=== PATIENT | male | born 1970 | race Caucasian/White ===

== ENCOUNTER 2017-08-06 03:12 | Emergency (ER) | payer BC, OTHER ==
[~2017-08-06] VITALS: Ht 172.7 cm; Wt 91.5 kg
[~2017-08-06 03:12] MED LIST: CPR500 PO
[2017-08-06 03:18] VITALS: TEMP 36.5; Ht 172.7 cm; Wt 91.5 kg
[2017-08-06] MEDS ORDERED: KETOROLAC TROMETHAMINE 30 MG/ML VIAL IV STA (03:32)
[2017-08-06] MEDS ORDERED: OPTIRAY 320 IV PRN (03:45)
[2017-08-06] MEDS ORDERED: CLINDAMYCIN IV 900 MG in DEXTROSE 5% ADD-VANTAGE 100ML 100 ML IV ONE (03:45)
[2017-08-06 03:51] LABS: BASO % 0.3 %; BASO ABS # 0.03 K/uL (0-0.2); EOS % 0.7 %; EOS ABS # 0.07 K/uL (0-0.5); HEMATOCRIT 42.8 % (42-52); HEMOGLOBIN 15.3 g/dL (14.0-18.0); IG# 0.01 K/uL (0.00-0.02); LYMPH % 17.9 %; LYMPH ABS # 1.75 K/uL (1.2-3.4); MEAN CELL VOLUME 85.9 fL (80-100); MEAN CORPUSCULAR HEMOGLOBIN 30.7 pg (25-34); MEAN CORPUSCULAR HGB CONC 35.7 g/dl (32-36); MEAN PLATELET VOLUME 10.2 fL (7.4-10.4); MONO % 9.7 %; MONO ABS # 0.95 K/uL (0.11-0.59); NEUT % 71.3 %; NEUT ABS # 6.99 K/uL (1.4-6.5); PLATELET COUNT 237 K/uL (130-400); RED CELL DISTRIBUTION WIDTH CV 13.1 % (11.5-14.5); RED CELL DISTRIBUTION WIDTH SD 41.2 fL (36.4-46.3)
[2017-08-06] MEDS ORDERED: PRLSR20 PO (04:05)
[2017-08-06] MEDS ORDERED: DICY10CA12 PO (04:05)
[2017-08-06 04:08] LABS: CALCIUM 9.3 mg/dl (8.5-10.1); CREATININE 0.98 mg/dl (0.60-1.40); POTASSIUM 3.6 mmol/L (3.5-5.1)
--- NOTE | 2017-08-06 04:31 | EMERGENCY ROOM VISIT NOTE ---
History First contact with patient: 03:21 Chief Complaint: FACIAL PAIN/INJURY Stated Complaint: SWOLLEN FACE RIGHT SIDE, INFECTED ABCESS History of Present Illness The patient is a 47 year old male who presents to the Emergency Room with complaints of right-sided facial swelling. The patient reports that yesterday afternoon, he developed some pain and a broken tooth in his right lower molars. He states the pain persisted throughout the day and he noticed some swelling of the area beginning last evening. Swelling worsened throughout the night, and the patient states that he woke up in the middle of the night 1 hour prior to arrival, he woke up with significant swelling in the area. He rates his overall discomfort a 2/10. Pain is aching and worse with movement of the mouth. He does report having issues with his teeth in the past and has had multiple abscesses. He has not seen a dentist in quite some time. He denies fever, difficulty breathing or difficulty swallowing. Review of Systems A complete 10 point review of systems was reviewed with the patient with pertinent positives and negatives as per history of present illness. All else were negative. Past Medical/Surgical History Medical Problems: (1) No significant active problems Social History Smoking Status: Current Every Day Smoker Current/Historical Medications Scheduled Clindamycin Hcl (Cleocin), 300 MG PO QID Omeprazole (Prilosec), 20 MG PO DAILY Scheduled PRN Dicyclomine Hcl (Dicyclomine Hcl), 1 CAP PO TID PRN for abdominal cramping Hydrocodone/Acetaminophen 5MG/325MG (Jupiter 5MG/325MG), 1-2 TABLET PO Q4H PRN for Pain Physical Exam Vital Signs Date Time Temp Pulse Resp B/P (MAP) Pulse Ox O2 Delivery O2 Flow Rate FiO2 08/06/17 06:06 57 20 97 08/06/17 06:01 118/80 08/06/17 05:47 64 95 Room Air 08/06/17 05:31 119/77 08/06/17 05:17 58 18 97 08/06/17 05:02 135/85 08/06/17 04:42 61 96 08/06/17 04:31 120/83 08/06/17 04:12 60 20 97 Room Air 08/06/17 04:01 133/87 08/06/17 03:57 130/87 08/06/17 03:18 36.5 80 16 134/89 95 Room Air Physical Exam VITALS: Vitals are noted on the nurse's note and reviewed by myself. Vital signs stable. GENERAL: This is a 47-year-old male, in no acute distress, nondiaphoretic, well- developed well-nourished. SKIN: The skin was without rashes. EARS: External auditory canals clear, tympanic membranes pearly noland without erythema or effusion bilaterally. EYES: Pupils equal round and reactive to light and accommodation. NOSE: Patent, turbinates without inflammation or discharge. MOUTH: There are multiple dental caries. No obvious abscess within the mouth. FACE: There is notable swelling to the right lower mandibular area which is tender to palpation. No overlying erythema or induration. NECK: Supple without nuchal rigidity. No lymphadenopathy. HEART: Regular rate and rhythm without murmurs gallops or rubs. LUNGS: Clear to auscultation bilaterally without wheezes, rales or rhonchi. NEURO: Patient was alert and oriented to person place and time. Medical Decision & Procedures ER Provider Diagnostic Interpretation: CT FACIAL: Compared to 12/20/07. Right lower facial soft tissue swelling and induration with rim-enhancing fluid collection adjacent to the right mandible measuring approximately 15 x 4 x 15 mm. Findings are suggestive of odontogenic infection and abscess. Dental caries. Mild sinus disease. Radiologist: Farida Fonseca M.D. Laboratory Results 08/06/17 03:42 Red Blood Count 4.98, Mean Corpuscular Volume 85.9, Mean Corpuscular Hemoglobin 30.7, Mean Corpuscular Hemoglobin Concent 35.7, Mean Platelet Volume 10.2, Neutrophils (%) (Auto) 71.3, Lymphocytes (%) (Auto) 17.9, Monocytes (%) (Auto) 9.7, Eosinophils (%) (Auto) 0.7, Basophils (%) (Auto) 0.3, Neutrophils # (Auto) 6.99, Lymphocytes # (Auto) 1.75, Monocytes # (Auto) 0.95, Eosinophils # (Auto) 0.07, Basophils # (Auto) 0.03 08/06/17 03:42 Test 08/06/17 03:42 White Blood Count 9.80 K/uL (4.8-10.8) Red Blood Count 4.98 M/uL (4.7-6.1) Hemoglobin 15.3 g/dL (14.0-18.0) Hematocrit 42.8 % (42-52) Mean Corpuscular Volume 85.9 fL (80-100) Mean Corpuscular Hemoglobin 30.7 pg (25-34) Mean Corpuscular Hemoglobin Concent 35.7 g/dl (32-36) Platelet Count 237 K/uL (130-400) Mean Platelet Volume 10.2 fL (7.4-10.4) Neutrophils (%) (Auto) 71.3 % Lymphocytes (%) (Auto) 17.9 % Monocytes (%) (Auto) 9.7 % Eosinophils (%) (Auto) 0.7 % Basophils (%) (Auto) 0.3 % Neutrophils # (Auto) 6.99 K/uL (1.4-6.5) Lymphocytes # (Auto) 1.75 K/uL (1.2-3.4) Monocytes # (Auto) 0.95 K/uL (0.11-0.59) Eosinophils # (Auto) 0.07 K/uL (0-0.5) Basophils # (Auto) 0.03 K/uL (0-0.2) RDW Standard Deviation 41.2 fL (36.4-46.3) RDW Coefficient of Variation 13.1 % (11.5-14.5) Immature Granulocyte % (Auto) 0.1 % Immature Granulocyte # (Auto) 0.01 K/uL (0.00-0.02) Anion Gap 4.0 mmol/L (3-11) Est Creatinine Clear Calc Drug Dose 101.2 ml/min Estimated GFR () 105.2 Estimated GFR (Non- 90.8 BUN/Creatinine Ratio 8.5 (10-20) Calcium Level 9.3 mg/dl (8.5-10.1) Medications Administered Medications (Trade) Dose Ordered Sig/Kyle Route Start Time Stop Time Status Last Admin Dose Admin Clindamycin Phosphate 900 mg/ Dextrose 106 ml @ 100 mls/hr ONE ONCE IV 08/06/17 03:45 08/06/17 04:48 DC 08/06/17 03:53 100 MLS/HR Ketorolac Tromethamine (Toradol Inj) 30 mg NOW STAT IV 08/06/17 03:32 08/06/17 03:33 DC 08/06/17 03:48 30 MG Medical Decision Differential diagnosis includes dental abscess, dental infection, facial cellulitis, Bart's angina, among others. The patient is a 47-year-old male who presents today complaining of right-sided facial swelling and dental pain. Exam does reveal appreciable swelling to the right lower jaw. Labs revealed no leukocytosis or concerning electrolyte abnormalities. CT was performed and read by statrad and did show odontogenic infection with abscess formation. Patient was given a dose of IV clindamycin and Toradol here. He will be placed on clindamycin but will need close follow- up with maxillofacial surgery. The counseling case manager did speak with the patient and will contact maxillofacial surgery first thing in the morning to schedule this appointment. Patient was advised to return here for worsening swelling, difficult breathing, difficulty swallowing, fevers or other new/concerning symptoms. The patient's case was reviewed with Dr. Perez, ED attending physician, who agreed with my assessment and treatment plan. Based on the patient's presentation and work up, I feel the patient is stable for outpatient treatment. The patient was educated to return to the emergency department for any worsening of their current condition or new/concerning symptoms. He will follow up with his PCP. [place] Drug Monitoring Program Search Results: patient reviewed within database, no issues identified Medication Reconcilliation Current Medication List: was personally reviewed by me Blood Pressure Screening Patient's blood pressure: Normal blood pressure Impression Primary Impression: Dental abscess Departure Information Dispostion Home / Self-Care Condition GOOD Prescriptions Hydrocodone/Acetaminophen 5MG/325MG (Jupiter 5MG/325MG) Tab 1-2 TABLET PO Q4H Y for Pain, #15 TAB For Initial Treatment Prov: Lula Reynolds PA-C 08/06/17 Clindamycin Hcl (CLEOCIN) 300 Mg Cap 300 MG PO QID for 10 Days, #40 CAP Prov: Lula Reynolds PA-C 08/06/17 Referrals No Doctor, Assigned (PCP) Huber Olson D.D.S. Patient Instructions My [facility] Additional Instructions You have been treated in the Emergency Department for a Dental Infection. You have been prescribed Jupiter to be used for pain control. This is a narcotic medication. You cannot drive or consume alcohol while on this medicine. This medicine should only be used for pain that cannot be controlled with over-the- counter pain medicines. You were prescribed Clindamycin to be taken as prescribed. This is an antibiotic. All antibiotics have the potential to cause diarrhea. Stop this medication and contact a medical provider if you were to develop any significant adverse side effects including: wheezing, shortness of breath, passing out, vomiting, or a diffuse rash. Always take antibiotics as directed and COMPLETE the ENTIRE course regardless of the improvement of your symptoms. For pain control, you can use the following [id number] medicines (if >12 yo): - Regular strength (325mg/tab) Tylenol (acetaminophen) 2 tabs every 4-6 hours as needed. Do not exceed 12 tablets in a 24 hour period. Avoid taking more than 4 grams (4000 mg) of Tylenol per day. This includes any other sources of acetaminophen you may take on a regular basis. - Regular strength (200 mg/tab) Advil (ibuprofen) 1-2 tabs every 4-6 hours as needed. Do not exceed a dose of 3200 mg per day. Refrain from smoking cigarettes or using chewing tobacco until you have been evaluated by your dentist. Keeping beverages lukewarm and consuming soft foods can decrease your pain. Warm compresses over the affected area may offer some relief. Case management will contact Dr. Olson's office to schedule you a follow up appointment and will contact you regarding this. Be sure to keep this appointment. Return to the emergency department if you develop the following symptoms despite treatment course outlined above: fever, difficulty breathing, difficulty swallowing intractable pain, increased redness, swelling, or pus- like discharge.
[2017-08-06 06:01] VITALS: BP 118/80
[2017-08-06 06:06] VITALS: PULSE 57; O2SAT 97
[2017-08-06] MEDS ORDERED: CLIN300C2 PO (06:14)
[2017-08-06] MEDS ORDERED: HYDR-5688 PO (06:16)
--- NOTE | 2017-08-06 07:11 | DIAGNOSTIC IMAGING REPORT ---
MAXILLOFACIAL CT CT DOSE: 146.91 mGy.cm HISTORY: right lower jaw swelling, dental infxn TECHNIQUE: Multiaxial CT images of the maxillofacial region were performed and reformatted in the coronal plane following the use of intravenous contrast. A dose lowering technique was utilized adhering to the principles of ALARA. COMPARISON: Maxillary facial CT 12/20/2007. FINDINGS: Right mandibular soft tissue swelling. There is no associated rim-enhancing fluid collection adjacent to the right hemimandible best seen on image 55. This measures 16 x 4 mm and is consistent with an abscess. Mild mucosal thickening within the ethmoid air cells. Multiple dental caries and periapical lucencies seen scattered throughout the teeth. This includes 2 adjacent periapical lucencies at ADA 28 and 29 adjacent to the abscess. IMPRESSION: A 16 x 4 mm abscess abutting the buccal surface of the right hemimandible with associated right mandibular soft tissue swelling. Findings are secondary to an odontogenic infection. Electronically signed by: Wale Lacy M.D. 08/06/2017 7:09 AM Dictated Date/Time: 08/06/2017 7:06 AM
== END 2017-08-06 06:28 | disposition home or self-care (01) ==
LOC: C.EDB 03:14
DX: K04.7 Periapical abscess without sinus (principal); K02.9 Dental caries, unspecified; F17.200 Nicotine dependence, unspecified, uncomplicated

== ENCOUNTER 2017-11-16 12:41 | Inpatient (IN) | payer BC ==
[~2017-11-16] VITALS: Ht 172.7 cm; Wt 89.5 kg
[~2017-11-16 12:41] MED LIST changes: -CPR500 PO; +DICY10CA12 PO; +HYDR-5688 PO; +PRLSR20 PO
[2017-11-16] MEDS ORDERED: SODIUM CHLORIDE 0.9% 1000ML 1,000 ML IV STA ×2 (13:00)
[2017-11-16 13:24] LABS: BASO % 0.4 %; BASO ABS # 0.04 K/uL (0-0.2); EOS % 0.2 %; EOS ABS # 0.02 K/uL (0-0.5); HEMATOCRIT 33.5 % (42-52); HEMOGLOBIN 11.2 g/dL (14.0-18.0); IG# 0.03 K/uL (0.00-0.02); LYMPH % 20.1 %; LYMPH ABS # 2.07 K/uL (1.2-3.4); MEAN CORPUSCULAR HEMOGLOBIN 29.1 pg (25-34); MEAN CORPUSCULAR HGB CONC 33.4 g/dl (32-36); MEAN PLATELET VOLUME 9.9 fL (7.4-10.4); MONO % 4.9 %; MONO ABS # 0.51 K/uL (0.11-0.59); NEUT % 74.1 %; NEUT ABS # 7.65 K/uL (1.4-6.5); PLATELET COUNT 244 K/uL (130-400); RED CELL DISTRIBUTION WIDTH SD 41.5 fL (36.4-46.3); WHITE BLOOD COUNT 10.32 K/uL (4.8-10.8)
[2017-11-16] MEDS ORDERED: PANTOprazole INJ 80 MG in DEXTROSE 5% 100ML IV ONE (13:30)
[2017-11-16 13:51] LABS: ALBUMIN 3.2 gm/dl (3.4-5.0); CALCIUM 7.9 mg/dl (8.5-10.1); CREATININE 0.97 mg/dl (0.60-1.40); TOTAL PROTEIN 6.2 gm/dl (6.4-8.2)
--- NOTE | 2017-11-16 14:04 | EMERGENCY ROOM VISIT NOTE ---
History Report prepared by Allen: Eliana Mcgregor Under the Supervision of: Dr. Amy Sarkar M.D. First contact with patient: 12:44 Chief Complaint: RECTAL BLEEDING Stated Complaint: DIZZINESS/TIRED Nursing Triage Summary: pt here with feeling of weakness and tired for a few days. pt was seen at [facility] on friday, started on omeprazole. pt states yesterday stools were dark. today had 2 bowel movements that were black and tarry. no hx of gi bleeding. having occasional abd pains. History of Present Illness The patient is a 47 year old male who presents to the Emergency Room with complaints of intermittent rectal bleeding that began two days ago. The patient stated that he had an H. pylori ulcer, which was treated using antibiotics during the first week of September. He noted that he had red beans and rice on night and then vomited night into Friday morning once every hour. He stated that he mostly heaved and produced non-bloody, bile colored vomit that had black specks in it. He notes that he would clear his throat and produce a pink sputum after vomiting. The patient noted that he has had melena twice a day for the past two days. He stated that he had abdominal pain, which he described as squeezing in his lower abdomen and tightness in his chest. The patient stated that this pain was similar, but not identical to the pain he experienced prior to his cholecystectomy. The patient complains of nausea, diaphoresis, and worsening lightheadedness over the past 2 days. He noted that he started taking Acetaminophen and Naproxen Sodium a week ago for toothache pain. He notes he takes 1 Naproxen Sodium in the evening. The patient notes that he began taking Omeprazole on Friday. The patient denies hematemesis, current abdominal pain, and the use of blood thinners. Source of History: patient Onset: Two days ago Position: other (Rectum) Timing: intermittent Associated Symptoms: + diaphoresis, + nausea, No abdominal pain Note: The patient complains of lightheadedness. The patient denies hematemesis. Review of Systems See HPI for pertinent positives & negatives. A total of 10 systems reviewed and were otherwise negative. Past Medical & Surgical Medical Problems: (1) GI bleed (2) No significant active problems (3) Tachycardia (4) Ulcer of pylorus associated with Helicobacter pylori Surgical Problems: (1) S/P cholecystectomy (2) S/P hernia repair Family History Diabetes mellitus FH: cancer FATHER MOTHER FHx: seizures Gallbladder disease Lung disease Social History Smoking Status: Light Tobacco Smoker Alcohol Use: other (1 to 2 6 packs per week ) Marital Status: Housing Status: lives with family Occupation Status: employed Current/Historical Medications Scheduled Omeprazole (Prilosec), 20 MG PO DAILY Allergies Coded Allergies: Penicillins (Verified Allergy, Unknown, RASH,ITCHING,SWELLING, 11/16/17) Physical Exam Vital Signs Date Time Temp Pulse Resp B/P (MAP) Pulse Ox O2 Delivery O2 Flow Rate FiO2 11/16/17 14:35 105 18 105/74 98 Room Air 11/16/17 14:07 97 Room Air 11/16/17 13:50 115 20 105/75 97 Room Air 11/16/17 13:47 83 18 104/77 97 Room Air 11/16/17 12:51 36.9 106 16 135/90 99 Room Air 11/16/17 12:48 97 Physical Exam Vital signs reviewed. Noted to be tachycardic. General: Well-appearing, in no significant distress. HEENT: No scleral icterus, PERRLA, neck supple. Atraumatic. Pale conjunctiva. Cardiovascular: Tachycardic rate and regular rhythm, no extra sounds. Pulmonary: Clear to auscultation bilaterally, normal work of breathing. Abdomen: Soft, mild epigastric tenderness, nondistended, positive bowel sounds. No rebound or guarding. Rectal: Melanotic stool that was guaiac positive. Normal external mucosa. Musculoskeletal: Atraumatic, no peripheral edema. Neurologic: Patient awake alert and oriented x 3, full strength in all 4 extremities. Cranial nerves 2 through 12 grossly intact. Skin: Warm, dry, no rash Medical Decision & Procedures Laboratory Results 11/16/17 13:13 Red Blood Count 3.85, Mean Corpuscular Volume 87.0, Mean Corpuscular Hemoglobin 29.1, Mean Corpuscular Hemoglobin Concent 33.4, Mean Platelet Volume 9.9, Neutrophils (%) (Auto) 74.1, Lymphocytes (%) (Auto) 20.1, Monocytes (%) (Auto) 4.9, Eosinophils (%) (Auto) 0.2, Basophils (%) (Auto) 0.4, Neutrophils # (Auto) 7.65, Lymphocytes # (Auto) 2.07, Monocytes # (Auto) 0.51, Eosinophils # (Auto) 0.02, Basophils # (Auto) 0.04 11/16/17 13:13 Test 11/16/17 13:13 White Blood Count 10.32 K/uL (4.8-10.8) Red Blood Count 3.85 M/uL (4.7-6.1) Hemoglobin 11.2 g/dL (14.0-18.0) Hematocrit 33.5 % (42-52) Mean Corpuscular Volume 87.0 fL (80-100) Mean Corpuscular Hemoglobin 29.1 pg (25-34) Mean Corpuscular Hemoglobin Concent 33.4 g/dl (32-36) Platelet Count 244 K/uL (130-400) Mean Platelet Volume 9.9 fL (7.4-10.4) Neutrophils (%) (Auto) 74.1 % Lymphocytes (%) (Auto) 20.1 % Monocytes (%) (Auto) 4.9 % Eosinophils (%) (Auto) 0.2 % Basophils (%) (Auto) 0.4 % Neutrophils # (Auto) 7.65 K/uL (1.4-6.5) Lymphocytes # (Auto) 2.07 K/uL (1.2-3.4) Monocytes # (Auto) 0.51 K/uL (0.11-0.59) Eosinophils # (Auto) 0.02 K/uL (0-0.5) Basophils # (Auto) 0.04 K/uL (0-0.2) RDW Standard Deviation 41.5 fL (36.4-46.3) RDW Coefficient of Variation 13.0 % (11.5-14.5) Immature Granulocyte % (Auto) 0.3 % Immature Granulocyte # (Auto) 0.03 K/uL (0.00-0.02) Anion Gap 6.0 mmol/L (3-11) Est Creatinine Clear Calc Drug Dose 101.5 ml/min Estimated GFR () 106.6 Estimated GFR (Non- 91.9 BUN/Creatinine Ratio 50.3 (10-20) Calcium Level 7.9 mg/dl (8.5-10.1) Total Bilirubin 0.5 mg/dl (0.2-1) Direct Bilirubin 0.1 mg/dl (0-0.2) Aspartate Amino Transf (AST/SGOT) 5 U/L (15-37) Alanine Aminotransferase (ALT/SGPT) 15 U/L (12-78) Alkaline Phosphatase 64 U/L (45-117) Total Protein 6.2 gm/dl (6.4-8.2) Albumin 3.2 gm/dl (3.4-5.0) Laboratory results per my review. Medications Administered Medications (Trade) Dose Ordered Sig/Kyle Route Start Time Stop Time Status Last Admin Dose Admin Sodium Chloride 1,000 ml @ 999 mls/hr Q1H1M STAT IV 11/16/17 13:00 11/16/17 14:00 DC 11/16/17 13:10 999 MLS/HR Sodium Chloride 1,000 ml @ 150 mls/hr Q6H40M STAT IV 11/16/17 13:00 11/16/17 19:39 11/16/17 13:10 150 MLS/HR Pantoprazole Sodium 80 mg/ Dextrose 120 ml @ 480 mls/hr 1330 ONCE IV 11/16/17 13:30 11/16/17 13:44 DC 11/16/17 13:44 480 MLS/HR Pantoprazole Sodium 40 mg/ Dextrose 100 ml @ 20 mls/hr Q5H IV 11/16/17 13:45 11/16/17 23:59 11/16/17 14:05 20 MLS/HR ECG Per My Interpretation Indication: abdominal pain Rate (beats per minute): 90 Rhythm: normal sinus Findings: no acute ischemic change, no ectopy, other (Nonspecific T wave abnormalities ) ED Course 1259: Past medical records reviewed. The patient was evaluated in room B2. A complete history and physical examination was performed. 1403: I reevaluated the patient and updated him on his test results. He verbally agrees and understands the treatment plan. 1408: I reviewed the patient's case with Dr. Marleen Newton. He will evaluate the patient for further management. Medical Decision Differential diagnosis: Etiologies such as diverticulosis, AVM, coagulopathy, colitis, inflammatory bowel disease, malignancy, Zandra-Vogt tear, esophagitis, peptic ulcer disease , variceal bleed, gastritis, epistaxis, fissure, hemorrhoids, as well as others were entertained. This patient was evaluated and appeared to be in no significant distress. IV access was obtained and laboratory work was drawn. Patient is noted to be tachycardic but maintaining normal blood pressure. He was hydrated with normal saline solution with improvement in his heart rate. Patient was given a Protonix bolus and started on a drip. He was typed and crossed for 2 units to hold. Patient's hemoglobin is 11, although he is likely hemoconcentrated. Patient was informed of the findings. The case was discussed with the hospitalist service. The patient was made aware of the plan and agrees. Medication Reconcilliation Current Medication List: was personally reviewed by me Blood Pressure Screening Patient's blood pressure: Normal blood pressure Blood pressure disposition: Did not require urgent referral Consults Time Called: [phone] Consulting Physician: Dr. Marleen Newton Returned Call: [phone] I reviewed the patient's case with Dr. Marleen Newton. He will evaluate the patient for further management. Impression Primary Impression: Upper GI bleed Scribe Attestation The scribe's documentation has been prepared under my direction and personally reviewed by me in its entirety. I confirm that the note above accurately reflects all work, treatment, procedures, and medical decision making performed by me. Departure Information Dispostion Being Evaluated By Hospitalist Referrals Xuan Loyd M.D. (MEDICAL) (PCP) Patient Instructions My [facility]
[2017-11-16] MEDS: PANTOprazole INJ 40 MG in DEXTROSE 5% 100ML IV SCH ×3 (14:05→23:45)
[2017-11-16 14:07] VITALS: O2SAT 97; Ht 172.7 cm; Wt 89.5 kg
[2017-11-16 14:35] VITALS: O2SAT 98
--- NOTE | 2017-11-16 14:37 | History and Physical ---
History & Physical Date & Time of Service: Nov 16, 2017 at 14:37 Chief Complaint: Dizziness/Tired Primary Care Physician: Xuan Loyd M.D. (MEDICAL) History of Present Illness Source: patient 47 year old male who presents to the Emergency Room with Recent vomiting started 4 days ago Melena in stool today Also abdominal pain recently going across the belly Recently used Naproxen for tooth pain for 7 days but not recently in the last 2 days because of feeling malaise Patient less than baseline hemoglobin in the emergency room. Blood pressure stable. However tachycardic to 130 with minimal exertion when examined by hospitalist. Patient's heart rate returned to around 100 beats per minute when at rest Patient reported less nausea. Denied vomiting today. Reports abdominal pain feeling somewhat better. Denies chest pain or shortness of breath or blood in urine Past Medical/Surgical History Medical Problems: (1) Dental abscess (2) No significant active problems Family History FH: cancer FATHER MOTHER Social History Smoking Status: Light Tobacco Smoker Allergies Coded Allergies: Penicillins (Verified Allergy, Unknown, RASH,ITCHING,SWELLING, 11/16/17) Home Medications Scheduled Omeprazole (Prilosec), 20 MG PO DAILY Review of Systems Constitutional: No fever Eyes: No worsening of vision ENT: No hearing loss Respiratory: No cough, No wheezing, No shortness of breath, No hemoptysis Cardiovascular: No chest pain, No edema, No palpitations Abdomen: + pain, + vomiting, + GI bleeding (black tarry stool today), No nausea , No diarrhea Musculoskeletal: No joint pain, No muscle pain Genitourinary - Male: No hematuria Neurologic: + problem reported (lightheadedness), No numbness/tingling Psychiatric: No substance abuse Endocrine: No excessive urination Hematologic / Lymphatic: No clotting problems Integumentary: No rash, No itch Physical Exam Vital Signs Date Time Temp Pulse Resp B/P (MAP) Pulse Ox O2 Delivery O2 Flow Rate FiO2 11/16/17 13:47 83 18 104/77 97 Room Air 11/16/17 12:51 36.9 106 16 135/90 99 Room Air 11/16/17 12:48 97 General Appearance: no apparent distress Head: normocephalic, atraumatic Eyes: normal inspection, EOMI, sclerae normal ENT: normal ENT inspection, hearing grossly normal, pharynx normal Neck: supple, no JVD, trachea midline Respiratory/Chest: chest non-tender, lungs clear, normal breath sounds, no respiratory distress, no accessory muscle use Cardiovascular: no edema, no JVD, no murmur, normal peripheral pulses, + tachycardia Abdomen/GI: normal bowel sounds, non tender, soft, no organomegaly, no pulsatile mass Back: normal inspection, normal range of motion Extremities/Musculoskelatal: normal inspection, no calf tenderness, no pedal edema Neurologic/Psych: no motor/sensory deficits, alert, oriented x 3 Skin: normal color, warm/dry, no rash Diagnostics Laboratory Results Results Past 24 Hours Test 11/16/17 13:13 Range/Units White Blood Count 10.32 4.8-10.8 K/uL Red Blood Count 3.85 4.7-6.1 M/uL Hemoglobin 11.2 14.0-18.0 g/dL Hematocrit 33.5 42-52 % Mean Corpuscular Volume 87.0 80-100 fL Mean Corpuscular Hemoglobin 29.1 25-34 pg Mean Corpuscular Hemoglobin Concent 33.4 32-36 g/dl Platelet Count 244 130-400 K/uL Mean Platelet Volume 9.9 7.4-10.4 fL Neutrophils (%) (Auto) 74.1 % Lymphocytes (%) (Auto) 20.1 % Monocytes (%) (Auto) 4.9 % Eosinophils (%) (Auto) 0.2 % Basophils (%) (Auto) 0.4 % Neutrophils # (Auto) 7.65 1.4-6.5 K/uL Lymphocytes # (Auto) 2.07 1.2-3.4 K/uL Monocytes # (Auto) 0.51 0.11-0.59 K/uL Eosinophils # (Auto) 0.02 0-0.5 K/uL Basophils # (Auto) 0.04 0-0.2 K/uL RDW Standard Deviation 41.5 36.4-46.3 fL RDW Coefficient of Variation 13.0 11.5-14.5 % Immature Granulocyte % (Auto) 0.3 % Immature Granulocyte # (Auto) 0.03 0.00-0.02 K/uL Sodium Level 138 136-145 mmol/L Potassium Level 4.0 3.5-5.1 mmol/L Chloride Level 108 98-107 mmol/L Carbon Dioxide Level 24 21-32 mmol/L Anion Gap 6.0 3-11 mmol/L Blood Urea Nitrogen 49 7-18 mg/dl Creatinine 0.97 0.60-1.40 mg/dl Est Creatinine Clear Calc Drug Dose 101.5 ml/min Estimated GFR () 106.6 Estimated GFR (Non- 91.9 BUN/Creatinine Ratio 50.3 10-20 Random Glucose 137 70-99 mg/dl Calcium Level 7.9 8.5-10.1 mg/dl Total Bilirubin 0.5 0.2-1 mg/dl Direct Bilirubin 0.1 0-0.2 mg/dl Aspartate Amino Transf (AST/SGOT) 5 15-37 U/L Alanine Aminotransferase (ALT/SGPT) 15 12-78 U/L Alkaline Phosphatase 64 45-117 U/L Total Protein 6.2 6.4-8.2 gm/dl Albumin 3.2 3.4-5.0 gm/dl Impression Assessment and Plan Symptomatic anemia Rule out GI bleed History of H Pylori History of NSAID use History of Melena in stool -admission Hgb of 11.2 compared to July 2017 Hgb of 15 and outpatient August 2017 of 14.7 (patient did have laparoscopic cholecystomy in September 2017) -IV fluids, trend CBC, Pantoprazole IV -trend CBC, 2 units of PRBC on hold as ordered by ED physician -Keep NPO -Case discuss with [facility] Case on evaluation for upper endoscopy/colonoscopy Tachycardia with sitting up (heart in the 130s when sitting up from rest in the emergency room) -may be from dehydration vs blood loss -treat for possible GI bleed and give IV fluids, transfuse if significant drop in Hgb or signs of exsanguination -monitor on telemetry History of alcohol use drinks 12 beers a week denies history of alcohol withdrawal no clinical signs of alcohol withdrawal at this time but will take precaution given already patient has tachycardia will start alcohol withdrawal order set with thiamine and folate, ativan IV prn History of Cholecystectomy DVT ppx: SCDs Full Code [phone] father [phone] Resuscitation Status VTE Prophylaxis Will order VTE Prophylaxis: Yes Reason for no VTE drug order: Contraindicated (GI BLEED)
[2017-11-16] MEDS ORDERED: LORAZEPAM 2 MG/ML 1 ML VIAL IV PRN (15:00)
[2017-11-16 15:50] VITALS: BP 116/77; PULSE 86; TEMP 37.2; O2SAT 98
[2017-11-16] MEDS: SODIUM CHLORIDE 0.9% 1000ML 1,000 ML IV SCH ×2 (16:13→22:59)
[2017-11-16] MEDS ORDERED: MULTI-VITAMIN INFUSION INJ 10 ML, THIAMINE HCL INJ 100 MG, FoLIC ACID INJ 1 MG in SODIU... IV ONE (16:30)
[2017-11-16] MEDS ORDERED: ONDANSETRON INJ 2 MG/ML 2 ML VIAL IV PRN (17:15)
[2017-11-16 19:59] LABS: HEMATOCRIT 26.1 % (42-52); HEMOGLOBIN 8.8 g/dL (14.0-18.0); MEAN CORPUSCULAR HEMOGLOBIN 29.3 pg (25-34); MEAN CORPUSCULAR HGB CONC 33.7 g/dl (32-36); MEAN PLATELET VOLUME 9.9 fL (7.4-10.4); PLATELET COUNT 214 K/uL (130-400); RED CELL DISTRIBUTION WIDTH CV 13.1 % (11.5-14.5); RED CELL DISTRIBUTION WIDTH SD 42.1 fL (36.4-46.3)
[2017-11-16 20:00] VITALS: BP 108/69; PULSE 75; TEMP 36.7; O2SAT 99
--- NOTE | 2017-11-16 21:01 | GASTROINTESTINAL CONSULTATION ---
DATE OF CONSULTATION: 11/16/2017 Cross coverage for [facility]. ATTENDING PHYSICIAN: Dr. Young. CONSULTING PHYSICIAN: Dr. Rios. REASON FOR CONSULTATION: GI bleed. HISTORY OF PRESENT ILLNESS: Huber Wilson is a 47-year-old male who has a significant past medical history of H. pylori induced gastric ulcer that was diagnosed by Dr. Georges in August of this year. He was subsequently treated with triple therapy including PPI and antibiotics x2 for 14 days and subsequently stopped PPI therapy following this as his symptoms had resolved. He did not have any further testing including repeat endoscopy or H. pylori stool antigen to confirm eradication per the patient and I do not have further records. He did undergo a cholecystectomy in early September and states that up until approximately 1-2 weeks ago, he was feeling good from a GI standpoint; however, he developed persistent abdominal pain in the midepigastric region. He states that he has been taking NSAIDs over the past 7 days for some tooth pain and states that the pain was approximately 7/10 in intensity, epigastric, radiating to his back without alleviating or exacerbating factors. He was seen at an outpatient [facility] yesterday and was started on Prilosec therapy. However, he developed prompting ER visit this morning and upon arrival to the Department of Emergency Medicine, he was noted to be anemic with an H and H of 11.2 and 33.5. His BUN and creatinine at the time of evaluation in the ER were 49 and 0.97. He was subsequently started on a Protonix drip with an 80 mg bolus followed by 8 mg per hour drip. He was noted to be tachycardic at times per Dr. Young who contacted me in this regard though the patient had no further episodes of melena that were witnessed in the hospital. At the time that I saw the patient, he did state that his abdominal pain had decreased to approximately 4/10 in intensity in the epigastric region. He denied any further melena. He further denied any hematemesis or hematochezia. He denies any further complaints. PAST MEDICAL HISTORY: Significant for peptic ulcer disease with a history of H. pylori, dental abscess, chronic cholecystitis. PAST SURGICAL HISTORY: Includes a cholecystectomy. ALLERGIES: PENICILLIN. MEDICATIONS: At present include Protonix 8 mg per hour drip, Zofran 4 mg IV q. 6 p.r.n. nausea, thiamine 100 mg IV q.a.m., Zofran 4 mg IV q. 6 p.r.n. nausea, Ativan 1 mg IV q. 1 hour p.r.n. symptoms of alcohol withdrawal. SOCIAL HISTORY: He is . 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 He states that he drinks approximately a 6 pack every 1-2 weeks of beer. He denies any illicit drug use. He does admit to vaping, but does not smoke cigarettes at present. FAMILY HISTORY: Negative for GI malignancy or inflammatory bowel diseases. REVIEW OF SYSTEMS: Negative x12 system review other than pertinent positives listed in the HPI. PHYSICAL EXAMINATION: VITAL SIGNS: Include a temperature of 37.2, pulse 86, respirations 18, blood pressure 116/77, pulse ox 98% on room air. GENERAL: He is awake, cooperative, in no acute distress. HEAD: Normocephalic, atraumatic. EYES: Pupils equally round. Extraocular muscles are intact. ENT: External evaluation of ears and nose are normal. Oropharynx is clear. NECK: Soft and supple. There is no JVD or lymphadenopathy. CHEST: Clear to auscultation bilaterally. CARDIOVASCULAR SYSTEM: Regular rate and rhythm. ABDOMEN: Soft, tender in the midepigastric area. Nondistended. There are positive bowel sounds. There is no hepatosplenomegaly or stigmata of chronic liver disease. EXTREMITIES: No clubbing, cyanosis, or edema. SKIN: Soft and pink. PSYCHIATRIC: Alert and oriented x3. LABORATORY STUDIES: Reviewed in the HPI. IMPRESSION: A 47-year-old male with history of peptic ulcer disease, history of H. pylori infection who presented with epigastric abdominal pain and melena with acute blood loss anemia. PLAN: At the present time, I would recommend that the patient be given clear liquids today. He will be kept n.p.o. after midnight. I would recommend he continue on a Protonix drip at 8 mg per hour and I would recommend that he undergo an upper endoscopy tomorrow by [facility] for further evaluation of his symptoms, especially in light of the fact that he has had a gastric ulcer previously and he has been on NSAIDs. I will follow his clinical course and make further recommendations as needed. Once again, thanks for allowing me to participate in the care of this patient. If you have any further questions, please do not hesitate in contacting me.
[2017-11-16 23:38] VITALS: BP 104/62; PULSE 77; TEMP 36.7; O2SAT 94
[2017-11-17] VITALS (16 sets, daily range): BP systolic 92–118; BP diastolic 61–83; PULSE 66–88; TEMP 36.5–37.3; O2SAT 97–100
[2017-11-17] MEDS: PANTOprazole INJ 40 MG in DEXTROSE 5% 100ML IV SCH ×5 (00:05→23:52)
[2017-11-17 02:57] LABS: HEMATOCRIT 22.9 % (42-52); HEMOGLOBIN 7.8 g/dL (14.0-18.0); MEAN CELL VOLUME 86.4 fL (80-100); MEAN CORPUSCULAR HEMOGLOBIN 29.4 pg (25-34); MEAN CORPUSCULAR HGB CONC 34.1 g/dl (32-36); MEAN PLATELET VOLUME 9.3 fL (7.4-10.4); PLATELET COUNT 188 K/uL (130-400); RED CELL DISTRIBUTION WIDTH CV 13.2 % (11.5-14.5); RED CELL DISTRIBUTION WIDTH SD 41.6 fL (36.4-46.3); WHITE BLOOD COUNT 8.68 K/uL (4.8-10.8)
[2017-11-17 03:37] LABS: ALBUMIN 2.6 gm/dl (3.4-5.0); CALCIUM 6.9 mg/dl (8.5-10.1); CREATININE 0.76 mg/dl (0.60-1.40); POTASSIUM 3.7 mmol/L (3.5-5.1); TOTAL PROTEIN 4.9 gm/dl (6.4-8.2)
[2017-11-17] MEDS ORDERED: ACETAMINOPHEN 325 MG TAB PO ONE (04:00)
[2017-11-17] MEDS ORDERED: FUROSEMIDE INJ 20 MG in SYRINGE 0 ML IV SCH (05:00)
[2017-11-17] MEDS: SODIUM CHLORIDE 0.9% 1000ML 1,000 ML IV SCH ×2 (06:12→16:08)
--- NOTE | 2017-11-17 08:24 | Progress Note ---
Progress Note Date of Service Nov 17, 2017. Progress Note Subjective: Patient currently on second unit of PRBC as his Hgb declined from admission 11.2 to 8.8 to 7.8. Patient also reported further dark tarry stools. Denies acute pain or shortness of breath or light headedness. On exam heart rate was 75 beats per minute with low normotensive blood pressure of systolic 106 while on blood products and IV fluids. When sitting up, for lung auscultation heart rate increased to 95 beats per minute before declining when returning to lying down on the bed Physical Exam General: no acute distress Lungs: clear to auscultation, no wheezing Heart: as above Abdomen: soft, nontender, bowel sounds present Extremities: no edema Neuro: awake and alert, moves extremities, verbal Assessment and Plan Symptomatic anemia History of H Pylori History of NSAID use History of Melena in stool Likely upper GI bleed -admission Hgb of 11.2 compared to July 2017 Hgb of 15 and outpatient August 2017 of 14.7 (patient did have laparoscopic cholecystomy in September 2017) -Patient currently on second unit of PRBC as his Hgb declined from admission 11.2 to 8.8 to 7.8. Patient also reported further dark tarry stools. -continue IV fluids, Pantoprazole IV -trend CBC -appreciate gastroenterology service intervention Tachycardia with sitting up (heart in the 130s when sitting up from rest in the emergency room) -on telemetry -heart rate increases from 75 bpm to 95 bpm with minimal exertion by day 2 -likely due to blood loss anemia -continue to treat GI bleed History of alcohol use drinks 12 beers a week denies history of alcohol withdrawal no clinical signs of alcohol withdrawal at this time precaution taken given already patient has tachycardia have been on alcohol withdrawal order set with thiamine and folate, ativan IV prn History of Cholecystectomy DVT ppx: SCDs Full Code [phone] father [phone]
[2017-11-17] MEDS: FoLIC ACID INJ 1 MG in SYRINGE 9.8 ML IV SCH (09:55)
[2017-11-17] MEDS: THIAMINE HCL INJ 100 MG in SYRINGE 9 ML IV SCH (09:56)
--- NOTE | 2017-11-17 10:11 | Clinical Documentation Query ---
BRITTON Barahona : CLINICAL DOCUMENTATION QUERY Patient is a 47 year old male admitted for symptomatic anemia in the setting of likely GI bleed. Hemoglobin down to 7.8 g/dl and was transfused two units of PRBC's. Monitored with serial hematology and seen in consultation by GI. Maintained on IVF and PPI infusion. In your clinical opinion is this patient being managed for: (x ) Acute blood loss anemia ( ) Not Agree ( ) Other explanation of clinical findings (No explanation is considered a No Response) ( ) Unable to determine ( ) Need to Discuss (Phone CDS or qliq) (No discussion is considered a No Response) The medical record reflects the following clinical findings, treatment, and risk factors. Clinical Indicators: As above Treatment: As above Risk Factors: H.Pylori, alcohol use, NSAID use Please clarify and document your clinical opinion in the progress notes and discharge summary. Terms such as "probable", "suspected", "likely", "questionable", "possible", or "still to be ruled out" are acceptable. IF IN AGREEMENT, YOU MUST DOCUMENT ABOVE DIAGNOSTIC STATEMENT IN DAILY PROGRESS NOTES AND DISCHARGE SUMMARY. This document is not part of the patient's record. Thank You, Eldon Llanos, RN [phone]
[2017-11-17 10:47] LABS: HEMATOCRIT 28.3 % (42-52); HEMOGLOBIN 9.6 g/dL (14.0-18.0); MEAN CELL VOLUME 85.8 fL (80-100); MEAN CORPUSCULAR HEMOGLOBIN 29.1 pg (25-34); MEAN CORPUSCULAR HGB CONC 33.9 g/dl (32-36); PLATELET COUNT 176 K/uL (130-400); RED CELL DISTRIBUTION WIDTH CV 13.7 % (11.5-14.5); RED CELL DISTRIBUTION WIDTH SD 42.4 fL (36.4-46.3); WHITE BLOOD COUNT 7.53 K/uL (4.8-10.8)
[2017-11-17] MEDS ORDERED: LIDOCAINE HCL 2% 2 ML VIAL (20MG/ML) ONE (11:07)
[2017-11-17] MEDS ORDERED: PROPOFOL IV EMULSION 10 MG/ML 20 ML VIAL ONE (11:07)
--- NOTE | 2017-11-17 11:10 | Endo History and Physical ---
History & Physical Date of Service: Nov 17, 2017. Chief Complaint: Referring Physician: History of Present Illness pt with GI bleeding and hx of ulcer disease. Past Surgical History Hx Cardiac Surgery: No Hx Abdominal Surgery: Yes ([facility]) Hx Post-Op Nausea and Vomiting: No Hx Cancer Surgery: No Hx Thoracic Surgery: No Hx Orthopedic: No Hx Urinary Tract Surgery: No Social History Smoking Status: Light Tobacco Smoker Hx Substance Use: No Hx Alcohol Use: Yes (OCC BEER) Allergies Coded Allergies: Penicillins (Verified Allergy, Unknown, RASH,ITCHING,SWELLING, 11/16/17) Current Medications Reported Home Medications Medications Dose Route/Sig Max Daily Dose Days Date Category Prilosec (Omeprazole) 20 Mg Capcr 20 Mg PO DAILY 08/06/17 Reported Vital Signs Weight (Kilograms): 90.000 Height (Feet): 5 Height (Inches): 8.00 Date Time Temp Pulse Resp B/P (MAP) Pulse Ox O2 Delivery O2 Flow Rate FiO2 11/17/17 10:54 36.9 80 18 117/74 (88) 100 Room Air 11/17/17 08:57 78 19 118/70 (75) 99 11/17/17 08:46 80 13 115/83 (97) 98 11/17/17 08:32 88 19 108/74 (84) 98 11/17/17 08:00 Room Air 11/17/17 07:46 73 9 106/65 (68) 100 11/17/17 07:46 36.5 71 18 106/65 (79) 100 11/17/17 07:31 85 12 111/76 (82) 99 11/17/17 07:25 36.8 84 16 116/72 (76) 99 11/17/17 07:15 80 19 99 11/17/17 07:02 36.8 68 14 110/73 99 11/17/17 06:00 37.0 72 18 92/61 99 11/17/17 05:30 36.8 79 16 102/65 99 11/17/17 05:00 36.9 71 18 106/73 98 11/17/17 04:34 36.8 75 18 102/67 98 11/17/17 04:06 36.9 66 18 98/65 (76) 97 Room Air 11/16/17 23:38 36.7 77 17 104/62 (76) 94 Room Air 11/16/17 20:00 36.7 75 18 108/69 (82) 99 Room Air 11/16/17 20:00 Room Air 11/16/17 16:15 Room Air 11/16/17 15:50 37.2 86 18 116/77 (90) 98 Room Air 11/16/17 14:35 105 18 105/74 98 Room Air 11/16/17 14:07 97 Room Air 11/16/17 13:50 115 20 105/75 97 Room Air 11/16/17 13:47 83 18 104/77 97 Room Air 11/16/17 12:51 36.9 106 16 135/90 99 Room Air 11/16/17 12:48 97 Physical Exam General Appearance: no apparent distress Respiratory/Chest: Auscultation: breath sounds normal Cardiovascular: Heart Auscultation: RRR Abdomen: Inspection & Palpation: soft Liver: non-tender Assessment and Plan stable for EGD
--- NOTE | 2017-11-17 11:45 | GI REPORT ---
Patient Name: Rambo Wilson Procedure Date: 11/17/2017 11:15 AM Date of : 1970 Admit Type: Inpatient Age: 47 Gender: Male Attending MD: Silverio Frank MD Procedure: Upper GI endoscopy Providers: Silverio Frank MD Referring MD: Carlito Young M.d. Indications: Melena Medicines: See the Anesthesia note for documentation of the administered medications Complications: No immediate complications. Estimated Blood Loss: Estimated blood loss: none. Procedure: Pre-Anesthesia Assessment: - Prior to the procedure, a History and Physical was performed, and patient medications, allergies and sensitivities were reviewed. The patient's tolerance of previous anesthesia was reviewed. - The risks and benefits of the procedure and the sedation options and risks were discussed with the patient. All questions were answered and informed consent was obtained. - Patient identification and proposed procedure were verified prior to the procedure by the physician and the nurse. The procedure was verified in the pre-procedure area. - Pre-procedure physical examination revealed no contraindications to sedation. - After reviewing the risks and benefits, the patient was deemed in satisfactory condition to undergo the procedure. After obtaining informed consent, the endoscope was passed under direct vision. Throughout the procedure, the patient's blood pressure, pulse, and oxygen saturations were monitored continuously. The Scope was introduced through the mouth, and advanced to the second part of duodenum. The upper GI endoscopy was accomplished without difficulty. The patient tolerated the procedure well. Findings: The esophagus was normal. Clotted blood was found in the gastric body. Large non-bleeding cratered gastric ulcers were found in the gastric antrum. The examined duodenum was normal but obscured by clots. Impression: - Normal esophagus. - Large clots in the gastric body. - Large serpentine gastric ulcers, most likely from NSAIDS. - Normal examined duodenum but obscured by clots. - No specimens collected. Recommendation: - [facility] for [facility] care. - Clears only - Cont IV PPI - Follow H/H - Patient should have a repeat EGD in 2-3 days to reasses ulcers and stomach. Omid Orr MD 11/17/2017 11:45:30 AM This report has been signed electronically. Note Initiated On: 11/17/2017 11:15 AM Number of Addenda: 0 I attest to the content of the Intraoperative Record and orders documented therein, exceptions below {[id number]}
--- NOTE | 2017-11-17 14:56 | Anesthesiology Progress Note ---
Anesthesia Post Op Note Date & Time Nov 17, 2017 at 14:55 Vital Signs Pain Intensity: 0 Vital Signs Past 12 Hours Date Time Temp Pulse Resp B/P (MAP) Pulse Ox O2 Delivery O2 Flow Rate FiO2 11/17/17 12:34 37.1 77 16 101/69 (80) 100 Room Air 11/17/17 12:02 77 20 113/68 (83) 98 Room Air 11/17/17 11:47 77 18 98/66 (77) 96 Room Air 11/17/17 11:32 36.9 91 18 91/57 (68) 98 Room Air 11/17/17 10:54 36.9 80 18 117/74 (88) 100 Room Air 11/17/17 08:57 78 19 118/70 (75) 99 11/17/17 08:46 80 13 115/83 (97) 98 11/17/17 08:32 88 19 108/74 (84) 98 11/17/17 08:00 Room Air 11/17/17 07:46 73 9 106/65 (68) 100 11/17/17 07:46 36.5 71 18 106/65 (79) 100 11/17/17 07:31 85 12 111/76 (82) 99 11/17/17 07:25 36.8 84 16 116/72 (76) 99 11/17/17 07:15 80 19 99 11/17/17 07:02 36.8 68 14 110/73 99 11/17/17 06:00 37.0 72 18 92/61 99 11/17/17 05:30 36.8 79 16 102/65 99 11/17/17 05:00 36.9 71 18 106/73 98 11/17/17 04:34 36.8 75 18 102/67 98 11/17/17 04:06 36.9 66 18 98/65 (76) 97 Room Air Notes Mental Status: alert / awake / arousable, participated in evaluation Pt Amnestic to Procedure: Yes Nausea / Vomiting: adequately controlled Pain: adequately controlled Airway Patency, RR, SpO2: stable & adequate BP & HR: stable & adequate Hydration State: stable & adequate Anesthetic Complications: no major complications apparent
[2017-11-17 16:29] LABS: HEMATOCRIT 25.7 % (42-52); HEMOGLOBIN 8.7 g/dL (14.0-18.0); MEAN CORPUSCULAR HEMOGLOBIN 29.1 pg (25-34); MEAN CORPUSCULAR HGB CONC 33.9 g/dl (32-36); MEAN PLATELET VOLUME 9.7 fL (7.4-10.4); PLATELET COUNT 152 K/uL (130-400); RED CELL DISTRIBUTION WIDTH CV 13.7 % (11.5-14.5); RED CELL DISTRIBUTION WIDTH SD 42.1 fL (36.4-46.3); WHITE BLOOD COUNT 7.03 K/uL (4.8-10.8)
[2017-11-17 22:55] LABS: HEMATOCRIT 22.2 % (42-52); HEMOGLOBIN 7.5 g/dL (14.0-18.0); MEAN CELL VOLUME 85.1 fL (80-100); MEAN CORPUSCULAR HEMOGLOBIN 28.7 pg (25-34); MEAN CORPUSCULAR HGB CONC 33.8 g/dl (32-36); MEAN PLATELET VOLUME 9.9 fL (7.4-10.4); PLATELET COUNT 159 K/uL (130-400); RED CELL DISTRIBUTION WIDTH CV 13.7 % (11.5-14.5); RED CELL DISTRIBUTION WIDTH SD 42.2 fL (36.4-46.3); WHITE BLOOD COUNT 7.71 K/uL (4.8-10.8)
[2017-11-18] VITALS (17 sets, daily range): BP systolic 101–140; BP diastolic 60–80; PULSE 61–82; TEMP 36.5–37.1; O2SAT 95–100
[2017-11-18] MEDS: SODIUM CHLORIDE 0.9% 1000ML 1,000 ML IV SCH ×4 (00:01→21:29)
[2017-11-18] MEDS: PANTOprazole INJ 40 MG in DEXTROSE 5% 100ML IV SCH ×5 (03:52→20:45)
[2017-11-18 06:46] LABS: BASO % 0.3 %; BASO ABS # 0.02 K/uL (0-0.2); EOS % 2.4 %; EOS ABS # 0.15 K/uL (0-0.5); HEMATOCRIT 22.4 % (42-52); HEMOGLOBIN 7.5 g/dL (14.0-18.0); IG# 0.01 K/uL (0.00-0.02); LYMPH % 30.3 %; LYMPH ABS # 1.92 K/uL (1.2-3.4); MEAN CELL VOLUME 85.5 fL (80-100); MEAN CORPUSCULAR HEMOGLOBIN 28.6 pg (25-34); MEAN CORPUSCULAR HGB CONC 33.5 g/dl (32-36); MEAN PLATELET VOLUME 10.1 fL (7.4-10.4); MONO % 7.3 %; MONO ABS # 0.46 K/uL (0.11-0.59); NEUT % 59.5 %; NEUT ABS # 3.78 K/uL (1.4-6.5); PLATELET COUNT 164 K/uL (130-400); RED CELL DISTRIBUTION WIDTH SD 42.7 fL (36.4-46.3); WHITE BLOOD COUNT 6.34 K/uL (4.8-10.8)
[2017-11-18 07:25] LABS: ALBUMIN 2.6 gm/dl (3.4-5.0); CALCIUM 7.4 mg/dl (8.5-10.1); CREATININE 0.77 mg/dl (0.60-1.40); POTASSIUM 3.8 mmol/L (3.5-5.1)
[2017-11-18] MEDS: FoLIC ACID INJ 1 MG in SYRINGE 9.8 ML IV SCH (08:03)
[2017-11-18] MEDS: THIAMINE HCL INJ 100 MG in SYRINGE 9 ML IV SCH (08:19)
--- NOTE | 2017-11-18 08:58 | Gastroenterology Progress Note ---
Progress Note Date of Service: Nov 18, 2017 Subjective Pt evaluation today including: conversation w/ patient, physical exam, chart review, lab review, review of studies, review of inpatient medication list Mr. Wilson is a 47 yr old male who presented on 11/16 with c/o melena. Hb on arrival 11.2, received 2 units of RBCs. Yesterday EGD with large cratered gastric ulcers, likely NSAID induced. Hb yesterday 9, today 7.5 but only one small black BM yesterday, no BMs today. BUN decreasing, today 22. Pt feels well - minimal epigastric discomfort. Review of Systems Constitutional: No fever Respiratory: No cough Abdomen: + see HPI, + pain (improving), + GI bleeding, No nausea, No vomiting, No diarrhea Male : No dysuria Neuro: No memory loss Psych: No depression symptoms Skin: No rash Medications Current Inpatient Medications Medications (Trade) Dose Ordered Sig/Kyle Route Start Time Stop Time Status Last Admin Dose Admin Sodium Chloride 1,000 ml @ 125 mls/hr Q8H IV 11/16/17 16:30 12/16/17 16:29 11/18/17 07:06 125 MLS/HR Thiamine HCl 100 mg/Syringe 10 ml @ 2 mls/min QAM IV 11/17/17 09:00 12/17/17 08:59 11/18/17 08:19 2 MLS/MIN Lorazepam (Ativan Inj) 1 mg ONE PRN IV 11/16/17 15:00 12/16/17 14:59 Ondansetron HCl (Zofran Inj) 4 mg Q6H PRN IV 11/16/17 17:15 12/16/17 17:14 Pantoprazole Sodium 40 mg/ Dextrose 100 ml @ 20 mls/hr Q5H IV 11/16/17 23:45 12/16/17 23:44 11/18/17 03:52 20 MLS/HR Folic Acid 1 mg/ Syringe 10 ml @ 5 mls/min QAM IV 11/17/17 09:00 12/17/17 08:59 11/18/17 08:03 5 MLS/MIN Objective Vital Signs Date Time Temp Pulse Resp B/P (MAP) Pulse Ox O2 Delivery O2 Flow Rate FiO2 11/18/17 08:31 37.1 82 16 116/73 99 11/18/17 08:13 37.1 76 20 115/72 99 11/18/17 08:00 36.8 76 18 109/76 (87) 96 11/18/17 03:42 37.0 76 15 103/67 (79) 100 Room Air 11/18/17 00:24 36.8 74 15 117/70 (86) 100 Room Air 11/17/17 20:00 Room Air 11/17/17 19:40 37.3 70 18 114/68 (83) 98 Room Air 11/17/17 15:05 37.0 87 18 116/70 (85) 100 Room Air 11/17/17 12:34 37.1 77 16 101/69 (80) 100 Room Air 11/17/17 12:02 77 20 113/68 (83) 98 Room Air 11/17/17 11:47 77 18 98/66 (77) 96 Room Air 11/17/17 11:32 36.9 91 18 91/57 (68) 98 Room Air 11/17/17 10:54 36.9 80 18 117/74 (88) 100 Room Air 11/17/17 08:57 78 19 118/70 (75) 99 Physical Exam General Appearance: no apparent distress Neck: no JVD Respiratory/Chest: lungs clear Cardiovascular: regular rate, rhythm, no murmur Abdomen: soft, + tenderness (mild epigastric tenderness) Extremities: no pedal edema Neurologic/Psych: alert, normal mood/affect, oriented x 3 Skin: no jaundice Laboratory Results Last 24 Hours Test 11/17/17 10:33 11/17/17 16:19 11/17/17 22:40 11/18/17 06:03 White Blood Count 7.53 K/uL 7.03 K/uL 7.71 K/uL 6.34 K/uL Red Blood Count 3.30 M/uL 2.99 M/uL 2.61 M/uL 2.62 M/uL Hemoglobin 9.6 g/dL 8.7 g/dL 7.5 g/dL 7.5 g/dL Hematocrit 28.3 % 25.7 % 22.2 % 22.4 % Mean Corpuscular Volume 85.8 fL 86.0 fL 85.1 fL 85.5 fL Mean Corpuscular Hemoglobin 29.1 pg 29.1 pg 28.7 pg 28.6 pg Mean Corpuscular Hemoglobin Concent 33.9 g/dl 33.9 g/dl 33.8 g/dl 33.5 g/dl RDW Standard Deviation 42.4 fL 42.1 fL 42.2 fL 42.7 fL RDW Coefficient of Variation 13.7 % 13.7 % 13.7 % 14.0 % Platelet Count 176 K/uL 152 K/uL 159 K/uL 164 K/uL Mean Platelet Volume 10.0 fL 9.7 fL 9.9 fL 10.1 fL Neutrophils (%) (Auto) 59.5 % Lymphocytes (%) (Auto) 30.3 % Monocytes (%) (Auto) 7.3 % Eosinophils (%) (Auto) 2.4 % Basophils (%) (Auto) 0.3 % Neutrophils # (Auto) 3.78 K/uL Lymphocytes # (Auto) 1.92 K/uL Monocytes # (Auto) 0.46 K/uL Eosinophils # (Auto) 0.15 K/uL Basophils # (Auto) 0.02 K/uL Immature Granulocyte % (Auto) 0.2 % Immature Granulocyte # (Auto) 0.01 K/uL Red Blood Cell Morphology Unremarkable Sodium Level 142 mmol/L Potassium Level 3.8 mmol/L Chloride Level 112 mmol/L Carbon Dioxide Level 24 mmol/L Anion Gap 6.0 mmol/L Blood Urea Nitrogen 22 mg/dl Creatinine 0.77 mg/dl Est Creatinine Clear Calc Drug Dose 128.0 ml/min Estimated GFR () 124.4 Estimated GFR (Non- 107.3 BUN/Creatinine Ratio 28.6 Random Glucose 101 mg/dl Calcium Level 7.4 mg/dl Total Bilirubin 0.5 mg/dl Aspartate Amino Transf (AST/SGOT) 7 U/L Alanine Aminotransferase (ALT/SGPT) 13 U/L Alkaline Phosphatase 47 U/L Total Protein 5.0 gm/dl Albumin 2.6 gm/dl Globulin 2.4 gm/dl Albumin/Globulin Ratio 1.1 Assessment and Plan Mr. Wilson is a 47 yr old male admitted with melena, anemia. EGD with NSAID induced gastric ulcers. Plan: 1. Continue Protonix drip. 2. Continue to follow Hb/Hct, BUN, and stool outputs. 3. Repeat EGD tomorrow for possible tx of ulcers. 4. Clear liquids po today. NPO after midnight. ATTESTATION: I have performed a history and physical examination of this patient and reviewed the electronic record. Specifically on physical examination there is no abdominal tenderness and no sign of ongoing bleeding. I have discussed the case with ANSELMO Perez. The above note reflects my findings, conclusions , and recommendations. Randolph Griggs MD
[2017-11-18 10:58] LABS: HEMATOCRIT 24.2 % (42-52); HEMOGLOBIN 8.1 g/dL (14.0-18.0); MEAN CELL VOLUME 86.4 fL (80-100); MEAN CORPUSCULAR HEMOGLOBIN 28.9 pg (25-34); MEAN PLATELET VOLUME 9.8 fL (7.4-10.4); PLATELET COUNT 141 K/uL (130-400); RED CELL DISTRIBUTION WIDTH CV 14.3 % (11.5-14.5); RED CELL DISTRIBUTION WIDTH SD 44.5 fL (36.4-46.3); WHITE BLOOD COUNT 6.49 K/uL (4.8-10.8)
[2017-11-18 11:04] LABS: MEAN CORPUSCULAR HGB CONC 33.5 g/dl (32-36)
--- NOTE | 2017-11-18 15:18 | Progress Note ---
Progress Note Date of Service Nov 18, 2017. Progress Note Subjective: Patient had a PRBC transfused today as Hgb 7.5 and recent endoscopy on 11/17/17 showing blood clots. Patient denies worsening abdominal discomfort. Denies acute pain. Denes chest pain of shortness of breath. Gastroenterology service planning on re-doing EGD tomorrow Physical Exam General: no acute distress Lungs: clear to auscultation, no wheezing Heart: normal heart rate when laying at rest Abdomen: soft, nontender, bowel sounds present Extremities: no edema Neuro: awake and alert, moves extremities, verbal Assessment and Plan Symptomatic anemia secondary to acute blood loss anemia History of H Pylori History of NSAID use History of Melena in stool Likely upper GI bleed -admission Hgb of 11.2 compared to July 2017 Hgb of 15 and outpatient August 2017 of 14.7 (patient did have laparoscopic cholecystomy in September 2017) -has received a total of 3 PRBC on this admission -as per EGD on 11/17/17by gastroenterology there were: Large clots in the gastric body. 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 Normal examined duodenum but obscured by clots. No specimens collected -Gastroenterology planning to repeat EGD on 11/19/17 -continue IV fluids, Pantoprazole IV -trend CBC Tachycardia with sitting up (heart in the 130s when sitting up from rest in the emergency room) -on telemetry -minimal exertion causes heart rate to rise by 20 beats per minute -likely due to blood loss anemia -continue to treat GI bleed History of alcohol use drinks 12 beers a week denies history of alcohol withdrawal no clinical signs of alcohol withdrawal at this time; precautions taken when patient was tachycardic on admission have been on alcohol withdrawal order set with thiamine and folate, ativan IV prn History of Cholecystectomy DVT ppx: SCDs Full Code [phone] father [phone]
[2017-11-18 18:18] LABS: HEMATOCRIT 23.1 % (42-52); HEMOGLOBIN 7.9 g/dL (14.0-18.0); MEAN CELL VOLUME 86.8 fL (80-100); MEAN CORPUSCULAR HEMOGLOBIN 29.7 pg (25-34); MEAN CORPUSCULAR HGB CONC 34.2 g/dl (32-36); PLATELET COUNT 151 K/uL (130-400); RED CELL DISTRIBUTION WIDTH CV 14.1 % (11.5-14.5); RED CELL DISTRIBUTION WIDTH SD 43.9 fL (36.4-46.3); WHITE BLOOD COUNT 5.26 K/uL (4.8-10.8)
[2017-11-19] MEDS: PANTOprazole INJ 40 MG in DEXTROSE 5% 100ML IV SCH ×3 (01:05→08:26)
[2017-11-19 01:22] LABS: BASO % 0.4 %; BASO ABS # 0.02 K/uL (0-0.2); EOS % 3.2 %; EOS ABS # 0.18 K/uL (0-0.5); HEMATOCRIT 22.5 % (42-52); HEMOGLOBIN 7.7 g/dL (14.0-18.0); IG# 0.01 K/uL (0.00-0.02); LYMPH % 36.3 %; LYMPH ABS # 2.06 K/uL (1.2-3.4); MEAN CELL VOLUME 87.2 fL (80-100); MEAN CORPUSCULAR HEMOGLOBIN 29.8 pg (25-34); MEAN CORPUSCULAR HGB CONC 34.2 g/dl (32-36); MEAN PLATELET VOLUME 9.9 fL (7.4-10.4); MONO % 6.9 %; MONO ABS # 0.39 K/uL (0.11-0.59); NEUT ABS # 3.02 K/uL (1.4-6.5); PLATELET COUNT 147 K/uL (130-400); RED CELL DISTRIBUTION WIDTH CV 13.9 % (11.5-14.5); RED CELL DISTRIBUTION WIDTH SD 43.7 fL (36.4-46.3); WHITE BLOOD COUNT 5.68 K/uL (4.8-10.8)
[2017-11-19 04:34] VITALS: BP 114/64; PULSE 51; TEMP 36.9; O2SAT 99
[2017-11-19] MEDS: SODIUM CHLORIDE 0.9% 1000ML 1,000 ML IV SCH (04:35)
[2017-11-19 06:12] LABS: HEMATOCRIT 23.6 % (42-52); HEMOGLOBIN 7.9 g/dL (14.0-18.0)
[2017-11-19 08:10] VITALS: BP 129/72; PULSE 56; TEMP 36.8; O2SAT 95
[2017-11-19] MEDS: THIAMINE HCL INJ 100 MG in SYRINGE 9 ML IV SCH (08:27)
[2017-11-19] MEDS: FoLIC ACID INJ 1 MG in SYRINGE 9.8 ML IV SCH (08:27)
--- NOTE | 2017-11-19 09:23 | History & Physical Bridge Note ---
H&P Re-Evaluation Bridge Note: I have examined the patient, reviewed the History & Physical and in the interval since the performance of the History & Physical I have noted the following changes of clinical significance: No changes noted
[2017-11-19] MEDS ORDERED: LIDOCAINE HCL 2% 2 ML VIAL (20MG/ML) ONE (09:49)
[2017-11-19] MEDS ORDERED: MIDAZOLAM HCL 1 MG/ML 2ML VIAL ONE (09:50)
[2017-11-19] MEDS ORDERED: ONDANSETRON INJ 2 MG/ML 2 ML VIAL ONE (09:51)
--- NOTE | 2017-11-19 10:33 | GI REPORT ---
Patient Name: Rambo Wilson Procedure Date: 11/19/2017 9:50 AM Date of : 1970 Admit Type: Inpatient Age: 47 Gender: Male Attending MD: Randolph Griggs MD Procedure: Upper GI endoscopy Providers: Randolph Griggs MD Referring MD: Jeffy PERALES Indications: Recent gastrointestinal bleeding Medicines: Propofol per Anesthesia Complications: No immediate complications. Estimated blood loss: None. Estimated Blood Loss: Estimated blood loss: none. Procedure: Pre-Anesthesia Assessment: - Prior to the procedure, a History and Physical was performed, and patient medications, allergies and sensitivities were reviewed. The patient's tolerance of previous anesthesia was reviewed. - ASA Grade Assessment: II - A patient with mild systemic disease. After obtaining informed consent, the endoscope was passed under direct vision. Throughout the procedure, the patient's blood pressure, pulse, and oxygen saturations were monitored continuously. The scope was introduced through the mouth, and advanced to the third part of duodenum. The upper GI endoscopy was accomplished with ease. The patient tolerated the procedure well. Findings: The upper third of the esophagus, middle third of the esophagus and lower third of the esophagus were normal. The Z-line was regular and was found 36 cm from the incisors. A hiatal hernia was present. Two non-obstructing non-bleeding cratered gastric ulcers of moderate to significant severity with pigmented material were found in the gastric antrum. The largest lesion was 12 mm in largest dimension. Biopsies were taken with a cold forceps in the entire examined stomach for Helicobacter pylori testing. Patchy mildly erythematous mucosa without active bleeding and with no stigmata of bleeding was found in the duodenal bulb. Verification of patient identification for the specimen was done by the physician and nurse using the patient's name, date and medical record number. Impression: - Normal upper third of esophagus, middle third of esophagus and lower third of esophagus. - Z-line regular, 36 cm from the incisors. - Hiatal hernia. - Non-obstructing non-bleeding gastric ulcers with pigmented material. NSAID induced etiology. - Erythematous duodenopathy. - Biopsies were taken with a cold forceps for Helicobacter pylori testing. Recommendation: - [facility] for ongoing care. Randolph Griggs M.D. Randolph Griggs MD 11/19/2017 10:33:11 AM This report has been signed electronically. Note Initiated On: 11/19/2017 9:50 AM Number of Addenda: 0 I attest to the content of the Intraoperative Record and orders documented therein, exceptions below {[id number]}
--- NOTE | 2017-11-19 11:28 | Anesthesiology Progress Note ---
Anesthesia Post Op Note Date & Time Nov 19, 2017 at 11:28 Vital Signs Pain Intensity: 0 Vital Signs Past 12 Hours Date Time Temp Pulse Resp B/P (MAP) Pulse Ox O2 Delivery O2 Flow Rate FiO2 11/19/17 10:59 56 18 114/64 (81) 98 Room Air 11/19/17 10:46 56 18 119/75 (90) 97 Room Air 11/19/17 10:31 83 16 96/53 (67) 95 Room Air 11/19/17 08:52 36.9 56 18 119/73 (88) 100 Room Air 11/19/17 08:10 36.8 56 18 129/72 (91) 95 11/19/17 08:00 Room Air 11/19/17 04:34 36.9 51 16 114/64 (81) 99 Room Air Notes Mental Status: alert / awake / arousable, participated in evaluation Pt Amnestic to Procedure: Yes Nausea / Vomiting: adequately controlled Pain: adequately controlled Airway Patency, RR, SpO2: stable & adequate BP & HR: stable & adequate Hydration State: stable & adequate Anesthetic Complications: no major complications apparent
[2017-11-19 11:54] VITALS: BP 134/69; PULSE 66; TEMP 36.5; O2SAT 98
[2017-11-19 12:09] LABS: HEMATOCRIT 24.8 % (42-52); HEMOGLOBIN 8.3 g/dL (14.0-18.0)
--- NOTE | 2017-11-19 14:35 | Progress Note ---
Medicine Progress Note Date & Time of Visit: Nov 19, 2017 at 14:14. Subjective Pt was seen and examined Lying in bed with no distress Pt is eating comfortable with at bedside He said that he had a BM yesterday that was dark Denies any chest pain, palpitation, dizziness, diarrhea, nausea and fever Objective Last 8 Hrs Date Time Temp Pulse Resp B/P (MAP) Pulse Ox O2 Delivery O2 Flow Rate FiO2 11/19/17 11:54 36.5 66 18 134/69 (90) 98 11/19/17 10:59 56 18 114/64 (81) 98 Room Air 11/19/17 10:46 56 18 119/75 (90) 97 Room Air 11/19/17 10:31 83 16 96/53 (67) 95 Room Air 11/19/17 08:52 36.9 56 18 119/73 (88) 100 Room Air 11/19/17 08:10 36.8 56 18 129/72 (91) 95 11/19/17 08:00 Room Air Physical Exam: General- No acute distress Head- atraumatic Eyes- PERRL, EOMI ENT- oropharynx clear Neck- supple, no JVD Lungs- clear to auscultation Heart- regular rhythm; no murmur Abdomen- normal bowel sounds, soft Extremities- No calf tenderness Neuro- alert, oriented x 3; PERRL, EOMI Skin- warm & dry Laboratory Results: Last 24 Hours Test 11/18/17 18:05 11/19/17 01:00 11/19/17 05:46 11/19/17 12:00 White Blood Count 5.26 K/uL 5.68 K/uL Red Blood Count 2.66 M/uL 2.58 M/uL Hemoglobin 7.9 g/dL 7.7 g/dL 7.9 g/dL 8.3 g/dL Hematocrit 23.1 % 22.5 % 23.6 % 24.8 % Mean Corpuscular Volume 86.8 fL 87.2 fL Mean Corpuscular Hemoglobin 29.7 pg 29.8 pg Mean Corpuscular Hemoglobin Concent 34.2 g/dl 34.2 g/dl RDW Standard Deviation 43.9 fL 43.7 fL RDW Coefficient of Variation 14.1 % 13.9 % Platelet Count 151 K/uL 147 K/uL Mean Platelet Volume 10.0 fL 9.9 fL Neutrophils (%) (Auto) 53.0 % Lymphocytes (%) (Auto) 36.3 % Monocytes (%) (Auto) 6.9 % Eosinophils (%) (Auto) 3.2 % Basophils (%) (Auto) 0.4 % Neutrophils # (Auto) 3.02 K/uL Lymphocytes # (Auto) 2.06 K/uL Monocytes # (Auto) 0.39 K/uL Eosinophils # (Auto) 0.18 K/uL Basophils # (Auto) 0.02 K/uL Immature Granulocyte % (Auto) 0.2 % Immature Granulocyte # (Auto) 0.01 K/uL Polychromasia 1+ Assessment & Plan Symptomatic anemia secondary to acute blood loss anemia Present on admission with vomiting and melena in stool Possible related to NSAIDs overuse Hgb on admission 11.2, then dropped to 8.8,...then 7.5 Received a total of 3 unit PRBC during hospital course S/P EGD on on 11/17 showed large clots in the gastric body. 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 Normal examined duodenum but obscured by clots. EGD done today showed non obstructing non bleeding ulcers with pigmented material Repeat hemoglobin 8.3 Biopsy done for H Pylori pending Case discussed with Gastro Protonix drip and IVF d/c Starting on Protonix BID Will need to follow up with GI to repeat EGD between 6 to 8 weeks Monitor H/H Advised pt to avoid alcohol and NSAIDs use Tachycardia Possible related to hypovolemia Resolved Alcohol use Drinks about 12 beers a week No signs of alcohol withdrawn Continue thiamine and folic acid Counseling on alcohol cessation History of Cholecystectomy Stable DVT ppx: SCDs (Due to GI bleed) Ambulates CODE STATUS Full Code DISPOSITION Possible discharge tomorrow if H/H stable Current Inpatient Medications: Current Inpatient Medications Medications (Trade) Dose Ordered Sig/Kyle Route Start Time Stop Time Status Last Admin Dose Admin Thiamine HCl 100 mg/Syringe 10 ml @ 2 mls/min QAM IV 11/17/17 09:00 12/17/17 08:59 11/19/17 08:27 2 MLS/MIN Lorazepam (Ativan Inj) 1 mg ONE PRN IV 11/16/17 15:00 12/16/17 14:59 Ondansetron HCl (Zofran Inj) 4 mg Q6H PRN IV 11/16/17 17:15 8/28/18 17:14 Folic Acid 1 mg/ Syringe 10 ml @ 5 mls/min QAM IV 11/17/17 09:00 12/17/17 08:59 11/19/17 08:27 5 MLS/MIN Pantoprazole Sodium (Protonix Tab) 40 mg BID PO 11/19/17 21:00 12/19/17 20:59
[2017-11-19 15:20] VITALS: BP 106/61; PULSE 63; TEMP 36.9; O2SAT 97
[2017-11-19 19:05] VITALS: BP 115/62; PULSE 71; TEMP 36.9; O2SAT 100
[2017-11-19] MEDS: PANTOprazole SOD 40 MG TAB PO SCH (20:32)
[2017-11-19 23:20] VITALS: BP 106/62; PULSE 64; TEMP 36.8; O2SAT 99
[2017-11-20 04:18] VITALS: BP 117/61; PULSE 62; TEMP 36.9; O2SAT 98
[2017-11-20 06:07] LABS: HEMATOCRIT 22.5 % (42-52); HEMOGLOBIN 7.6 g/dL (14.0-18.0); MEAN CELL VOLUME 87.9 fL (80-100); MEAN CORPUSCULAR HEMOGLOBIN 29.7 pg (25-34); MEAN CORPUSCULAR HGB CONC 33.8 g/dl (32-36); MEAN PLATELET VOLUME 9.7 fL (7.4-10.4); PLATELET COUNT 170 K/uL (130-400); RED CELL DISTRIBUTION WIDTH CV 14.2 % (11.5-14.5); RED CELL DISTRIBUTION WIDTH SD 44.2 fL (36.4-46.3); WHITE BLOOD COUNT 6.36 K/uL (4.8-10.8)
[2017-11-20] MEDS: PANTOprazole SOD 40 MG TAB PO SCH (07:42)
[2017-11-20 07:45] VITALS: BP 117/71; PULSE 57; TEMP 37.2; O2SAT 96
[2017-11-20] MEDS ORDERED: THIAMINE HCL 100 MG TAB PO SCH (09:00)
--- NOTE | 2017-11-20 09:10 | Gastroenterology Progress Note ---
Progress Note Date of Service: Nov 20, 2017 Subjective Pt evaluation today including: conversation w/ patient, physical exam, chart review, lab review, review of studies, review of inpatient medication list Mr. Wilson is a 47 yr old male with a hx of H Pylori induced gastric ulcer in August 2017 who presented to the hospital on 11/16 with melena. Was taking NSAIDs EGD on M 11/[address] Frank gastric ulcers with clots. EGD on W by Dr. Griggs with non bleeding cratered gastric ulcer. Today: Hb 7.6, down from 7.9 yesterday and BUN had normalized on 11/18. Most recent BM early on 11/17, small, formed, black. No abdominal pain. Tolerating a regular consistency diet well. Review of Systems Constitutional: No fever Respiratory: No cough Cardiac: No chest pain Abdomen: + see HPI, No pain, No nausea, No vomiting, No diarrhea, No constipation Male : No dysuria Neuro: No memory loss Psych: No depression symptoms Heme: No abnormal bleeding/bruising Endo: No fatigue Skin: No rash Medications Current Inpatient Medications Medications (Trade) Dose Ordered Sig/Kyle Route Start Time Stop Time Status Last Admin Dose Admin Lorazepam (Ativan Inj) 1 mg ONE PRN IV 11/16/17 15:00 12/16/17 14:59 Ondansetron HCl (Zofran Inj) 4 mg Q6H PRN IV 11/16/17 17:15 12/16/17 17:14 Pantoprazole Sodium (Protonix Tab) 40 mg BID PO 11/19/17 21:00 12/19/17 20:59 11/20/17 07:42 40 MG Thiamine HCl (Vitamin B-1 Tab) 100 mg QAM PO 11/20/17 09:00 12/20/17 08:59 11/20/17 07:42 100 MG Folic Acid (Folvite Tab) 1 mg QAM PO 11/20/17 09:00 12/20/17 08:59 11/20/17 07:42 1 MG Objective Vital Signs Date Time Temp Pulse Resp B/P (MAP) Pulse Ox O2 Delivery O2 Flow Rate FiO2 11/20/17 08:00 Room Air 11/20/17 07:45 37.2 57 19 117/71 (86) 96 Room Air 11/20/17 04:18 36.9 62 18 117/61 (79) 98 Room Air 11/19/17 23:59 Room Air 11/19/17 23:20 36.8 64 16 106/62 (77) 99 Room Air 11/19/17 19:05 36.9 71 18 115/62 (79) 100 Room Air 11/19/17 16:02 Room Air 11/19/17 15:20 36.9 63 18 106/61 (76) 97 Room Air 11/19/17 11:54 36.5 66 18 134/69 (90) 98 11/19/17 10:59 56 18 114/64 (81) 98 Room Air 11/19/17 10:46 56 18 119/75 (90) 97 Room Air 11/19/17 10:31 83 16 96/53 (67) 95 Room Air Physical Exam General Appearance: no apparent distress Neck: supple, no JVD Respiratory/Chest: lungs clear Cardiovascular: regular rate, rhythm, no JVD, no murmur Abdomen: non tender, soft Extremities: normal range of motion, no pedal edema, no calf tenderness Neurologic/Psych: alert, normal mood/affect, oriented x 3 Skin: no jaundice Laboratory Results Last 24 Hours Test 11/19/17 12:00 11/20/17 05:52 Hemoglobin 8.3 g/dL 7.6 g/dL Hematocrit 24.8 % 22.5 % White Blood Count 6.36 K/uL Red Blood Count 2.56 M/uL Mean Corpuscular Volume 87.9 fL Mean Corpuscular Hemoglobin 29.7 pg Mean Corpuscular Hemoglobin Concent 33.8 g/dl RDW Standard Deviation 44.2 fL RDW Coefficient of Variation 14.2 % Platelet Count 170 K/uL Mean Platelet Volume 9.7 fL Assessment and Plan Mr. Wilson is a 47 yr old male admitted with a hx of H Pylori gastric ulcers in August 2017, admitted with melena, acute blood loss anemia. EGD with NSAID induced gastric ulcers. Tough his anemia is concerning, It does not appear that he is actively bleeding. Plan: 1. BID PPI. 2. Would defer decision regarding possible additional transfusion to primary hospitalist. 3. on further GI procedures planned at this time. 4. Continue regular diet. 5. No NSAIDs. 6. Will check gastric path when available. . Recheck EGD in 6-8 wks to verify healing of the gastric ulcers. Our office will call this pt to arrange. ATTESTATION: I have performed a history and physical examination of this patient and reviewed the electronic record. Specifically on physical examination there is no abdominal tenderness and no sign of ongoing bleeding. I have discussed the case with ANSELMO Perez. The above note reflects my findings, conclusions , and recommendations. Randolph Griggs MD
[2017-11-20 11:42] VITALS: BP 110/72; PULSE 56; TEMP 36.8; O2SAT 99
[2017-11-20 14:13] LABS: HEMATOCRIT 25.1 % (42-52); HEMOGLOBIN 8.4 g/dL (14.0-18.0)
--- NOTE | 2017-11-20 16:12 | Progress Note ---
Medicine Progress Note Date & Time of Visit: Nov 20, 2017 at 15:54. Subjective Pt was seen and examined Lying in bed with no distress Pt said that he feels much better He said that he was feeling a little dizzy while walking early He said that dizziness improves Denies any chest pain, palpitation, SOB and fever Objective Last 8 Hrs Date Time Temp Pulse Resp B/P (MAP) Pulse Ox O2 Delivery O2 Flow Rate FiO2 11/20/17 11:42 36.8 56 18 110/72 (85) 99 Room Air 11/20/17 08:00 Room Air Physical Exam: General- No acute distress Head- atraumatic Eyes- PERRL, EOMI ENT- oropharynx clear Neck- supple, no JVD Lungs- clear to auscultation Heart- regular rhythm; no murmur Abdomen- normal bowel sounds, soft Extremities- No calf tenderness Neuro- alert, oriented x 3; PERRL, EOMI Skin- warm & dry Laboratory Results: Last 24 Hours Test 11/20/17 05:52 11/20/17 13:56 White Blood Count 6.36 K/uL Red Blood Count 2.56 M/uL Hemoglobin 7.6 g/dL 8.4 g/dL Hematocrit 22.5 % 25.1 % Mean Corpuscular Volume 87.9 fL Mean Corpuscular Hemoglobin 29.7 pg Mean Corpuscular Hemoglobin Concent 33.8 g/dl RDW Standard Deviation 44.2 fL RDW Coefficient of Variation 14.2 % Platelet Count 170 K/uL Mean Platelet Volume 9.7 fL Assessment & Plan Symptomatic anemia secondary to acute blood loss anemia Present on admission with vomiting and melena in stool Possible related to NSAIDs overuse Hgb on admission 11.2, then dropped to 8.8,...then 7.5 Received a total of 3 unit PRBC during hospital course S/P EGD on on 11/17 showed large clots in the gastric body. 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 Normal examined duodenum but obscured by clots. EGD done today showed non obstructing non bleeding ulcers with pigmented material Repeat hemoglobin 8.3 Biopsy done for H Pylori pending Case discussed with Gastro Protonix drip and IVF d/c Starting on Protonix BID Will need to follow up with GI to repeat EGD between 6 to 8 weeks Monitor H/H Advised pt to avoid alcohol and NSAIDs use 11/20 S/P EGD on 11/17 showed large clots in the gastric body. 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 Normal examined duodenum but obscured by clots. EGD done on 11/19 showed non obstructing non bleeding ulcers with pigmented material Hbg this morning 7.6, then repeat this afternoon 8.4 Case discussed with GI and OK from GI standpoint to discharge Biopsy showed Chronic moderate gastritis. No malignancy or H. Pylori Continue PPI BID Repeat EGD between 6 to 8 weeks Advised pt to avoid NSAIDs Check CBC within 1 week Tachycardia Possible related to hypovolemia Resolved Alcohol use Drinks about 12 beers a week No signs of alcohol withdrawn Continue thiamine and folic acid Counseling on alcohol cessation History of Cholecystectomy Stable DVT ppx: SCDs (Due to GI bleed) Ambulates CODE STATUS Full Code DISPOSITION Discharge home today Follow up with your new primary care provider Dr. Partida on 11/28 @ 12:45 PM at the [facility] Follow up with gastro to repeat Endoscopy between 6 to 8 weeks (The office will contact you for the appointment) Continue pantoprazole or omeprazole 40mg twice a day Avoid NSAIDs such as (naproxen, Aleve, Advil, Ibuprofen, Naproxen, Motrin, Meloxicam, ...) due to increase risks of bleeding ulcer Check CBC within 5 to 7 days. No alcohol intake because it will increase the risk of bleeding ulcer Fall precaution Consultants: Gastro Current Inpatient Medications: Current Inpatient Medications Medications (Trade) Dose Ordered Sig/Kyle Route Start Time Stop Time Status Last Admin Dose Admin Lorazepam (Ativan Inj) 1 mg ONE PRN IV 11/16/17 15:00 12/16/17 14:59 Ondansetron HCl (Zofran Inj) 4 mg Q6H PRN IV 11/16/17 17:15 12/16/17 17:14 Pantoprazole Sodium (Protonix Tab) 40 mg BID PO 11/19/17 21:00 12/19/17 20:59 11/20/17 07:42 40 MG Thiamine HCl (Vitamin B-1 Tab) 100 mg QAM PO 11/20/17 09:00 12/20/17 08:59 11/20/17 07:42 100 MG Folic Acid (Folvite Tab) 1 mg QAM PO 11/20/17 09:00 12/20/17 08:59 8/2/18 07:42 1 MG
[2017-11-20] MEDS ORDERED: PANT40TA2 PO (16:21)
[2017-11-20] MEDS ORDERED: THIA100T10 PO (16:21)
[2017-11-20] MEDS ORDERED: FLV1 PO (16:21)
--- NOTE | 2017-11-20 16:27 | Discharge Instructions ---
Discharge Instructions Date of Service Nov 20, 2017. Admission Reason for Admission: Gi Bleed,Tachycardia Discharge Discharge Diagnosis / Problem: Symptomatic anemia secondary to acute blood loss anemia Discharge Goals Goal(s): Decrease discomfort, Improve function, Improve disease control Activity Recommendations Activity Limitations: resume your previous activity (as tolerated) . Instructions / Follow-Up Instructions / Follow-Up Follow up with your new primary care provider Dr. Partida on 11/28 @ 12:45 PM at the [facility] Follow up with gastro to repeat Endoscopy between 6 to 8 weeks (The office will contact you for the appointment) Continue pantoprazole or omeprazole 40mg twice a day Avoid NSAIDs such as (naproxen, Aleve, Advil, Ibuprofen, Naproxen, Motrin, Meloxicam, ...) due to increase risks of bleeding ulcer Check CBC within 5 to 7 days. No alcohol intake because it will increase the risk of bleeding ulcer Fall precaution Current Hospital Diet Patient's current hospital diet: AHA Diet (Heart Healthy) Discharge Diet Recommended Diet: AHA Diet (Heart Healthy) Procedures Procedures Performed: Esophagogastroduodenoscopyx2 Pending Studies Studies pending at discharge: no Medical Emergencies . Who to Call and When: Medical Emergencies: If at any time you feel your situation is an emergency, please call 911 immediately. . Non-Emergent Contact Non-Emergency issues call your: Primary Care Provider, Wood Crew Supervisor Call Non-Emergent contact if: temperature is above 101, you have any medication questions . . "Provider Documentation" section prepared by Danya Morales. .
[2017-11-20 16:29] VITALS: BP_SYST 106; BP_SYST 110; BP_DIAS 70; BP_DIAS 72; PULSE 56; PULSE 61; TEMP 36.8; TEMP 37.1; O2SAT 99
--- NOTE | 2017-11-21 08:03 | Discharge Summary ---
Discharge Summary Date of Service Nov 21, 2017. Discharge Summary Admission Date: Nov 16, 2017 at 14:41 Discharge Date: Nov 20, 2017 Discharge Disposition: Home Principal Diagnosis: Symptomatic anemia secondary to acute blood loss anemia Secondary Diagnoses/Problems: Tachycardia History of Cholecystectomy Alcohol abuse Procedures: EGD x2 Consultations: Gastro Medication Reconciliation New Medications: Folic Acid (Folic Acid) 1 Mg Tab 1 MG PO QAM for 30 Days, #30 TAB Pantoprazole (Pantoprazole Sodium) 40 Mg Tab 40 MG PO BID for 30 Days, #60 TAB Thiamine Hcl (Vitamin B-1) 100 Mg Tab 100 MG PO QAM for 30 Days, #30 TAB Discontinued Medications: Omeprazole (Prilosec) 20 Mg Capcr 20 MG PO DAILY, CAP Admission Information HPI (per Admitting provider): 47 year old male who presents to the Emergency Room with Recent vomiting started 4 days ago Melena in stool today Also abdominal pain recently going across the belly Recently used Naproxen for tooth pain for 7 days but not recently in the last 2 days because of feeling malaise Patient less than baseline hemoglobin in the emergency room. Blood pressure stable. However tachycardic to 130 with minimal exertion when examined by hospitalist. Patient's heart rate returned to around 100 beats per minute when at rest Patient reported less nausea. Denied vomiting today. Reports abdominal pain feeling somewhat better. Denies chest pain or shortness of breath or blood in urine Physical Exam (per Admitting): General Appearance: no apparent distress Head: normocephalic, atraumatic Eyes: normal inspection, EOMI, sclerae normal ENT: normal ENT inspection, hearing grossly normal, pharynx normal Neck: supple, no JVD, trachea midline Respiratory/Chest: chest non-tender, lungs clear, normal breath sounds, no respiratory distress, no accessory muscle use Cardiovascular: no edema, no JVD, no murmur, normal peripheral pulses, + tachycardia Abdomen/GI: normal bowel sounds, non tender, soft, no organomegaly, no pulsatile mass Back: normal inspection, normal range of motion Extremities/Musculoskelatal: normal inspection, no calf tenderness, no pedal edema Neurologic/Psych: no motor/sensory deficits, alert, oriented x 3 Skin: normal color, warm/dry, no rash Hospital Course Symptomatic anemia secondary to acute blood loss anemia Present on admission with vomiting and melena in stool Possible related to NSAIDs overuse Hgb on admission 11.2, then dropped to 8.8,...then 7.5 Received a total of 3 unit PRBC during hospital course S/P EGD on on 11/17 showed large clots in the gastric body. 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 Normal examined duodenum but obscured by clots. EGD done today showed non obstructing non bleeding ulcers with pigmented material Repeat hemoglobin 8.3 Biopsy done for H Pylori pending Case discussed with Gastro Protonix drip and IVF d/c Starting on Protonix BID Will need to follow up with GI to repeat EGD between 6 to 8 weeks Monitor H/H Advised pt to avoid alcohol and NSAIDs use 11/20 S/P EGD on 11/17 showed large clots in the gastric body. 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 Normal examined duodenum but obscured by clots. EGD done on 11/19 showed non obstructing non bleeding ulcers with pigmented material Hbg this morning 7.6, then repeat this afternoon 8.4 Case discussed with GI and OK from GI standpoint to discharge Biopsy showed Chronic moderate gastritis. No malignancy or H. Pylori Continue PPI BID Repeat EGD between 6 to 8 weeks Advised pt to avoid NSAIDs Check CBC within 1 week Tachycardia Possible related to hypovolemia Resolved Alcohol use Drinks about 12 beers a week No signs of alcohol withdrawn Continue thiamine and folic acid Counseling on alcohol cessation History of Cholecystectomy Stable DVT ppx: SCDs (Due to GI bleed) Ambulates CODE STATUS Full Code DISPOSITION Discharge home today Follow up with your new primary care provider Dr. Partida on 11/28 @ 12:45 PM at the [facility] Follow up with gastro to repeat Endoscopy between 6 to 8 weeks (The office will contact you for the appointment) Continue pantoprazole or omeprazole 40mg twice a day Avoid NSAIDs such as (naproxen, Aleve, Advil, Ibuprofen, Naproxen, Motrin, Meloxicam, ...) due to increase risks of bleeding ulcer Check CBC within 5 to 7 days. No alcohol intake because it will increase the risk of bleeding ulcer Fall precaution Total time spent on discharge = 35 minutes This includes examination of the patient, discharge planning, medication reconciliation, and communication with other providers. Discharge Instructions Discharge Instructions Date of Service Nov 20, 2017. Admission Reason for Admission: Gi Bleed,Tachycardia Discharge Discharge Diagnosis / Problem: Symptomatic anemia secondary to acute blood loss anemia Discharge Goals Goal(s): Decrease discomfort, Improve function, Improve disease control Activity Recommendations Activity Limitations: resume your previous activity (as tolerated) . Instructions / Follow-Up Instructions / Follow-Up Follow up with your new primary care provider Dr. Partida on 11/28 @ 12:45 PM at the [facility] Follow up with gastro to repeat Endoscopy between 6 to 8 weeks (The office will contact you for the appointment) Continue pantoprazole or omeprazole 40mg twice a day Avoid NSAIDs such as (naproxen, Aleve, Advil, Ibuprofen, Naproxen, Motrin, Meloxicam, ...) due to increase risks of bleeding ulcer Check CBC within 5 to 7 days. No alcohol intake because it will increase the risk of bleeding ulcer Fall precaution Current Hospital Diet Patient's current hospital diet: AHA Diet (Heart Healthy) Discharge Diet Recommended Diet: AHA Diet (Heart Healthy) Procedures Procedures Performed: Esophagogastroduodenoscopyx2 Pending Studies Studies pending at discharge: no Medical Emergencies . Who to Call and When: Medical Emergencies: If at any time you feel your situation is an emergency, please call 911 immediately. . Non-Emergent Contact Non-Emergency issues call your: Primary Care Provider, Ceramic Capacitor Processor Call Non-Emergent contact if: temperature is above 101, you have any medication questions . . "Provider Documentation" section prepared by Danya Morales. . Additional Copies To Elise Partida D.O.
== END 2017-11-20 16:45 | disposition home or self-care (01) | DRG 378 ==
LOC: EDBD 12:41 → C.EDB 12:42 → C.2E 14:41 → ENRESERV 15:01
PROVIDERS: ADMIT Hospitalist; ATTEND Internal Medicine
PROC: 0DJ08ZZ Inspection of Upper Intestinal Tract, Via Natural or Artificial Opening Endoscopic (ICD-10-PCS; principal; 2017-11-17 10:49)
PROC: 0DB68ZX Excision of Stomach, Via Natural or Artificial Opening Endoscopic, Diagnostic (ICD-10-PCS; 2017-11-19)
DX: K25.4 Chronic or unspecified gastric ulcer with hemorrhage (principal); D62 Acute posthemorrhagic anemia; R00.0 Tachycardia, unspecified; F17.200 Nicotine dependence, unspecified, uncomplicated; Z79.899 Other long term (current) drug therapy; Z88.0 Allergy status to penicillin; Z72.89 Other problems related to lifestyle

== ENCOUNTER 2017-11-21 09:16 | Emergency (ER) | payer BC ==
[~2017-11-21] VITALS: Ht 172.7 cm; Wt 88.9 kg
[~2017-11-21 09:16] MED LIST changes: -DICY10CA12 PO; +FLV1 PO; -HYDR-5688 PO; +PANT40TA2 PO; -PRLSR20 PO; +THIA100T10 PO
[2017-11-21 09:20] VITALS: Ht 172.7 cm; Wt 88.9 kg
[2017-11-21 10:29] LABS: BASO % 0.4 %; BASO ABS # 0.03 K/uL (0-0.2); EOS ABS # 0.07 K/uL (0-0.5); HEMATOCRIT 24.8 % (42-52); HEMOGLOBIN 8.3 g/dL (14.0-18.0); IG# 0.02 K/uL (0.00-0.02); LYMPH % 20.8 %; LYMPH ABS # 1.42 K/uL (1.2-3.4); MEAN CELL VOLUME 87.9 fL (80-100); MEAN CORPUSCULAR HEMOGLOBIN 29.4 pg (25-34); MEAN CORPUSCULAR HGB CONC 33.5 g/dl (32-36); MEAN PLATELET VOLUME 10.3 fL (7.4-10.4); MONO % 8.1 %; MONO ABS # 0.55 K/uL (0.11-0.59); NEUT % 69.4 %; NEUT ABS # 4.74 K/uL (1.4-6.5); PLATELET COUNT 245 K/uL (130-400); RED CELL DISTRIBUTION WIDTH CV 14.7 % (11.5-14.5); RED CELL DISTRIBUTION WIDTH SD 44.2 fL (36.4-46.3); WHITE BLOOD COUNT 6.83 K/uL (4.8-10.8)
[2017-11-21 10:48] LABS: INR 0.9 (0.9-1.1); PTT PATIENT 25.2 SECONDS (21.0-31.0)
[2017-11-21 10:57] LABS: ALBUMIN 3.4 gm/dl (3.4-5.0); ALKALINE PHOSPHATASE 76 U/L (45-117); ALT/SGPT 17 U/L (12-78); AST/SGOT 12 U/L (15-37); BLOOD UREA NITROGEN 10 mg/dl (7-18); CALCIUM 8.7 mg/dl (8.5-10.1); CARBON DIOXIDE 30 mmol/L (21-32); GLUCOSE 101 mg/dl (70-99); POTASSIUM 3.7 mmol/L (3.5-5.1); SODIUM 140 mmol/L (136-145); TOTAL PROTEIN 6.4 gm/dl (6.4-8.2)
--- NOTE | 2017-11-21 11:07 | DIAGNOSTIC IMAGING REPORT ---
CHEST 2 VIEWS ROUTINE HISTORY: 47 years-old Male sob eval for pna acute shortness of breath COMPARISON: Chest radiograph 11/14/2009 TECHNIQUE: PA and lateral views of the chest FINDINGS: Cardiomediastinal and hilar silhouettes are within normal limits. Calcification of the aorta. No pneumothorax, pleural effusion, focal airspace consolidation or overt pulmonary edema. Ill-defined opacity of the left lung base at the intersection of the anterior left fifth and posterior left ninth ribs suggests summation artifact. Cholecystectomy clips noted. Bones appear grossly intact. IMPRESSION: No acute process. The above report was generated using voice recognition software. It may contain grammatical, syntax or spelling errors. Electronically signed by: Gray Loaiza M.D. 11/21/2017 11:05 AM Dictated Date/Time: 11/21/2017 11:04 AM
[2017-11-21] MEDS ORDERED: ACETAMINOPHEN 325 MG TAB PO STA (11:44)
[2017-11-21 13:45] VITALS: BP 125/74; PULSE 55; TEMP 37.1; O2SAT 100
[2017-11-21 14:00] VITALS: BP 141/75; PULSE 63; O2SAT 99
[2017-11-21 14:30] VITALS: BP 142/71; PULSE 57; O2SAT 99
[2017-11-21 15:31] VITALS: BP 116/79; PULSE 54; TEMP 36.9; O2SAT 99
[2017-11-21 15:59] VITALS: BP 118/82; PULSE 59; O2SAT 99
[2017-11-21 16:30] VITALS: BP 128/77; PULSE 58; TEMP 37.2; O2SAT 98
--- NOTE | 2017-11-30 23:37 | EMERGENCY ROOM VISIT NOTE ---
History Report prepared by Allen: Dominic Jenkins Under the Supervision of: Dr. Terry Orellana M.D. First contact with patient: 09:37 Chief Complaint: REFERRED BY DOCTOR Stated Complaint: REF. BY DOCTOR, RECENTLY DC, DIZZY, HEART PALPATIO History of Present Illness The patient is a 47 year old male who presents to the Emergency Room with complaints of dizziness and "pounding heart" with exertion beginning this past week. The patient reports associated shortness of breath. He states that he was in the hospital this past week for a GI bleed and was discharged yesterday. The patient states that he also has muscle spasms when lying down that began in the hospital this past week. He reports that he did not feel it again until last night, when it worsened. The patient states that he had black stool this morning. He states that the last time he had a bowel movement prior to that was 4 days ago. He notes that he is not normally pale. He denies tightness in the chest, abdominal pain, or pain and swelling in the legs. Source of History: patient Onset: this past week Position: chest (pounding heart), other (global (dizziness) ) Quality: other (dizziness, pounding heart) Modifying Factors (Worsening): exertion Associated Symptoms: + melena, No chest pain, No abdominal pain Review of Systems See HPI for pertinent positives & negatives. A total of 10 systems reviewed and were otherwise negative. Past Medical & Surgical Medical Problems: (1) GI bleed (2) No significant active problems (3) Tachycardia (4) Ulcer of pylorus associated with Helicobacter pylori Surgical Problems: (1) S/P cholecystectomy (2) S/P hernia repair Family History Diabetes mellitus FH: cancer FATHER MOTHER FHx: seizures Gallbladder disease Lung disease Social History Smoking Status: Former Smoker Alcohol Use: other Marital Status: Housing Status: lives with family Occupation Status: employed Current/Historical Medications Scheduled Folic Acid (Folic Acid), 1 MG PO QAM Pantoprazole (Pantoprazole Sodium), 40 MG PO BID Thiamine Hcl (Vitamin B-1), 100 MG PO QAM Allergies Coded Allergies: Penicillins (Verified Allergy, Unknown, RASH,ITCHING,SWELLING, 11/21/17) Physical Exam Vital Signs Date Time Temp Pulse Resp B/P (MAP) Pulse Ox O2 Delivery O2 Flow Rate FiO2 11/21/17 16:30 37.2 58 20 128/77 98 11/21/17 16:00 56 16 118/92 99 Room Air 11/21/17 15:59 59 17 118/82 99 0.0 11/21/17 15:31 36.9 54 12 116/79 99 0.0 11/21/17 14:30 57 18 142/71 99 11/21/17 14:00 63 18 141/75 99 11/21/17 13:50 37.1 59 18 125/74 100 Room Air 11/21/17 13:45 37.1 55 16 125/74 100 11/21/17 12:18 54 11/21/17 11:53 59 18 122/80 100 Room Air 11/21/17 10:46 59 18 114/72 100 Room Air 11/21/17 10:05 61 11/21/17 09:20 36.8 70 18 137/75 97 Room Air Physical Exam Constitutional: Vital signs reviewed. Eyes: Pupils are equal round reactive to light. Conjunctiva are noninjected. ENT: Pharynx is clear without erythema or exudate. Mucous membranes are moist. Neck supple without meningeal signs. Respiratory: Clear to auscultation bilaterally. Breath sounds are equal bilaterally. Cardiovascular: Regular rate and rhythm. No rubs or gallops. GI: Soft, nondistended and nontender. Bowel sounds are present. Musculoskeletal: No peripheral edema. No lower extremity tenderness. Integumentary: No cyanosis. Pale. Neurological: The patient is awake and alert. No focal deficits. Psychiatric: Normal affect. Medical Decision & Procedures ER Provider Diagnostic Interpretation: Radiology results as stated below per my review and the radiologist's interpretation: CHEST 2 VIEWS ROUTINE HISTORY: 47 years-old Male sob eval for pna acute shortness of breath COMPARISON: Chest radiograph 11/14/2009 TECHNIQUE: PA and lateral views of the chest FINDINGS: Cardiomediastinal and hilar silhouettes are within normal limits. Calcification of the aorta. No pneumothorax, pleural effusion, focal airspace consolidation or overt pulmonary edema. Ill-defined opacity of the left lung base at the intersection of the anterior left fifth and posterior left ninth ribs suggests summation artifact. Cholecystectomy clips noted. Bones appear grossly intact. IMPRESSION: No acute process. The above report was generated using voice recognition software. It may contain grammatical, syntax or spelling errors. Electronically signed by: Gray Loaiza M.D. 11/21/2017 11:05 AM Dictated Date/Time: 11/21/2017 11:04 AM Laboratory Results 11/21/17 10:15 Red Blood Count 2.82, Mean Corpuscular Volume 87.9, Mean Corpuscular Hemoglobin 29.4, Mean Corpuscular Hemoglobin Concent 33.5, Mean Platelet Volume 10.3, Neutrophils (%) (Auto) 69.4, Lymphocytes (%) (Auto) 20.8, Monocytes (%) (Auto) 8.1, Eosinophils (%) (Auto) 1.0, Basophils (%) (Auto) 0.4, Neutrophils # (Auto) 4.74, Lymphocytes # (Auto) 1.42, Monocytes # (Auto) 0.55, Eosinophils # (Auto) 0.07, Basophils # (Auto) 0.03 11/21/17 10:15 Test 11/21/17 10:15 11/22/17 11:42 White Blood Count 6.83 K/uL (4.8-10.8) Red Blood Count 2.82 M/uL (4.7-6.1) Hemoglobin 8.3 g/dL (14.0-18.0) Hematocrit 24.8 % (42-52) Mean Corpuscular Volume 87.9 fL (80-100) Mean Corpuscular Hemoglobin 29.4 pg (25-34) Mean Corpuscular Hemoglobin Concent 33.5 g/dl (32-36) Platelet Count 245 K/uL (130-400) Mean Platelet Volume 10.3 fL (7.4-10.4) Neutrophils (%) (Auto) 69.4 % Lymphocytes (%) (Auto) 20.8 % Monocytes (%) (Auto) 8.1 % Eosinophils (%) (Auto) 1.0 % Basophils (%) (Auto) 0.4 % Neutrophils # (Auto) 4.74 K/uL (1.4-6.5) Lymphocytes # (Auto) 1.42 K/uL (1.2-3.4) Monocytes # (Auto) 0.55 K/uL (0.11-0.59) Eosinophils # (Auto) 0.07 K/uL (0-0.5) Basophils # (Auto) 0.03 K/uL (0-0.2) RDW Standard Deviation 44.2 fL (36.4-46.3) RDW Coefficient of Variation 14.7 % (11.5-14.5) Immature Granulocyte % (Auto) 0.3 % Immature Granulocyte # (Auto) 0.02 K/uL (0.00-0.02) Neutrophils % (Manual) 78.2 % Lymphocytes % (Manual) 18.3 % Monocytes % (Manual) 0.9 % Eosinophils % (Manual) 1.7 % Basophils % (Manual) 0.9 % (0-2) Neutrophils # (Manual) 5.34 K/uL (1.4-6.5) Total Absolute Neutrophils 5.34 K/uL (1.4-6.5) Lymphocytes # (Manual) 1.25 K/uL (1.2-3.4) Total Absolute Lymphocytes 1.25 K/uL (1.2-3.4) Monocytes # (Manual) 0.06 K/uL (0.11-0.59) Eosinophils # (Manual) 0.12 K/uL (0-0.5) Basophils # (Manual) 0.06 K/uL (0-0.2) Hypersegmented Polys 1+ Prothrombin Time 9.7 SECONDS (9.0-12.0) Prothromb Time International Ratio 0.9 (0.9-1.1) Activated Partial Thromboplast Time 25.2 SECONDS (21.0-31.0) Partial Thromboplastin Ratio 1.0 Anion Gap 5.0 mmol/L (3-11) Est Creatinine Clear Calc Drug Dose 108.7 ml/min Estimated GFR () 116.6 Estimated GFR (Non- 100.6 BUN/Creatinine Ratio 10.9 (10-20) Calcium Level 8.7 mg/dl (8.5-10.1) Magnesium Level 2.5 mg/dl (1.8-2.4) Total Bilirubin 0.4 mg/dl (0.2-1) Direct Bilirubin 0.1 mg/dl (0-0.2) Aspartate Amino Transf (AST/SGOT) 12 U/L (15-37) Alanine Aminotransferase (ALT/SGPT) 17 U/L (12-78) Alkaline Phosphatase 76 U/L (45-117) Troponin I < 0.015 ng/ml (0-0.045) Total Protein 6.4 gm/dl (6.4-8.2) Albumin 3.4 gm/dl (3.4-5.0) Thyroid Stimulating Hormone (TSH) 1.370 uIu/ml (0.300-4.500) Lab Scanned Report Blood Transfusion Laboratory results as reviewed by me. Medications Administered Medications (Trade) Dose Ordered Sig/Kyle Route Start Time Stop Time Status Last Admin Dose Admin Acetaminophen (Tylenol Tab) 650 mg NOW STAT PO 11/21/17 11:44 11/21/17 11:45 DC 11/21/17 11:53 650 MG ECG Per My Interpretation Indication: palpitations Rate (beats per minute): 57 Rhythm: sinus bradycardia Findings: other (No ST elevations, no PVCs) ED Course 0942: The patient was evaluated in room B12B. A complete history and physical exam was performed. 1110: I discussed test results with the patient. 1117: I spoke with Dr. Andrew Newton. He reports that the patient was discharged yesterday. He was going to give the patient a transfusion, but his hemoglobin estevan. He states that the patient can be given a transfusion then discharged, and can follow up next week. 1126: The patient is agreeable to transfusion, and I obtained informed consent. Agreeable to plan for discharge after transfusion. 1144: Ordered Tylenol 650 mg PO 1311: I checked on the patient. He is still waiting on the blood bank. 1350: The patient is currently getting his transfusion. 1452: I updated with the patient , who is asymptomatic. He is still getting his transfusion. 1540: The patient is almost finished with his transfusion. He reports no current symptoms. I discussed tonight's findings with him. He verbalized agreement of the treatment plan. He was discharged home. Medical Decision This is a 47-year-old male who presents with generalized weakness and palpitations. Differential diagnosis includes anemia, GI bleed, metabolic derangement, electrolyte abnormality, dehydration. I did perform a limited focused review of portions of the patient's old chart on the electronic medical record. The patient was discharged November 20 for a GI bleed and symptomatic anemia. The patient was given 3 units of PRBCs. EGD showed large gastric ulcers. The patient was discharged on protonics. I did evaluate the patient as noted above. IV access was established. The patient was placed on a continuous nurse monitoring. I did order and personally review the patient's 12-lead EKG and chest x-ray as described above. I did order and review the patient's blood work as noted in the electronic medical record. He has persistent anemia with minimal change in his hemoglobin. He did have melanotic stools today but states that it was a very small amount and he was told by the GI physician that he should expect to have some residual melena even after discharge. The patient states that his palpitations and shortness of breath are present usually when he exerts himself. When he is at rest he is not having any significant symptoms. He does state that he has had the muscle aches which prevented him from sleeping last night. It is unclear what the muscle aches are from. I did have a discussion with Dr. Morales who did take care of the patient while in the hospital. He recommended transfusing the patient a unit and he will arrange for a repeat H&H next week and follow- up. The patient was happy with this plan. I did obtain informed consent for blood transfusion. He was transfused 1 unit of packed RBCs. I did reassess him multiple times. He had no reaction to the transfusion. He was discharged in good condition. Medication Reconcilliation Current Medication List: was personally reviewed by me Blood Pressure Screening Patient's blood pressure: Elevated blood pressure Blood pressure disposition: Referred to PCP Consults Time Called: 1114 Consulting Physician: Dr. Andrew Newton Returned Call: [address] Andrew Newton. He reports that the patient was discharged yesterday. He was going to give the patient a transfusion, but his hemoglobin estevan. He states that the patient can be given a transfusion then discharged, and can follow up next week. Impression Primary Impression: Symptomatic anemia Additional Impression: Upper GI bleed Critical Care I have personally spent 35 minutes of critical care time in the direct management of this patient. This includes bedside care, interpretation of diagnostic studies and testing, discussion with consultants and patient, and other required patient management activities. This time is in excess of all separately billable procedures. Scribe Attestation The scribe's documentation has been prepared under my direct and personally reviewed by me in its entirety. I confirm that the note above accurately reflects all work, treatment, procedures, and medical decision making performed by me. Departure Information Dispostion Home / Self-Care Referrals Xuan Loyd M.D. (MEDICAL) (PCP) Forms HOME CARE DOCUMENTATION FORM, IMPORTANT VISIT INFORMATION, WORK / SCHOOL INSTRUCTIONS Patient Instructions My [facility] Additional Instructions You have been examined and treated today on an emergency basis only. This is not a substitute for, or an effort to provide, complete comprehensive medical care. It is impossible to recognize and treat all injuries or illnesses in a single emergency department visit. It is therefore important that you follow up closely with your physician next week. Call as soon as possible for an appointment. Return for worsening symptoms or if you develop fever, vomiting, chest discomfort, feeling like you are going to pass out or any other concerning symptoms. Problem Qualifiers
== END 2017-11-21 16:32 | disposition home or self-care (01) ==
LOC: C.EDB 09:18
DX: D64.9 Anemia, unspecified (principal); R03.0 Elevated blood-pressure reading, without diagnosis of hypertension; K25.9 Gastric ulcer, unspecified as acute or chronic, without hemorrhage or perforation; Z87.19 Personal history of other diseases of the digestive system; Z86.79 Personal history of other diseases of the circulatory system; Z87.891 Personal history of nicotine dependence; Z88.0 Allergy status to penicillin